=== PATIENT | male | born 1995 | race Caucasian/White ===

== ENCOUNTER 2016-07-28 22:59 | Inpatient (IN) | payer MEDICAID ==
[~2016-07-28] VITALS: Ht 180.3 cm; Wt 123.8 kg
[2016-07-29] VITALS (8 sets, daily range): BP systolic 123–147; BP diastolic 69–96
[2016-07-29] MEDS ORDERED: HALOPERIDOL 5 MG TABLET PO PRN (02:15)
[2016-07-29] MEDS ORDERED: LORazepam 2 MG TABLET PO PRN ×2 (02:15→13:30)
[2016-07-29] MEDS ORDERED: INFLUENZA VIRUS VACCINE QVS 2016-17 (3YR+)/PF 60 MCG/0.5 ML SYRINGE IM ONE (03:00)
[2016-07-29] MEDS ORDERED: MAG HYDROX/AL HYDROX/SIMETH ES 30 ML SUSPENSION UDCUP PO PRN (09:00)
[2016-07-29] MEDS ORDERED: MAGNESIUM HYDROXIDE SUSPENSION 30 ML UDCUP PO PRN (09:00)
[2016-07-29] MEDS ORDERED: ONDANSETRON HCL 4 MG TABLET PO PRN (09:00)
[2016-07-29] MEDS ORDERED: CloNIDine HCL 0.1 MG TABLET PO PRN (09:00)
[2016-07-29] MEDS ORDERED: PETROLATUM,WHITE 71 GM JELLY TP PRN (09:00)
[2016-07-29] MEDS ORDERED: BACITRACIN 28.4 GM OINTMENT TP PRN (09:00)
[2016-07-29] MEDS ORDERED: BENZOCAINE/MENTHOL LOZENGE MM PRN (09:00)
[2016-07-29] MEDS ORDERED: IBUPROFEN 600 MG TABLET PO PRN (09:00)
[2016-07-29] MEDS ORDERED: ACETAMINOPHEN 325 MG TABLET PO PRN (09:00)
[2016-07-29] MEDS ORDERED: LOPERAMIDE HCL 2 MG CAPSULE PO PRN (09:00)
[2016-07-29] MEDS ORDERED: FLUTICASONE PROPIONATE 50 MCG/SPRAY 16 GM NASAL SPRAY NASAL PRN (09:15)
[2016-07-29] MEDS ORDERED: HydrOXYzine PAMOATE 50 MG CAPSULE PO PRN (13:30)
[2016-07-29] MEDS ORDERED: CYANOCOBALAMIN 1,000 MCG/ML VIAL IM ONE (13:30)
[2016-07-29] MEDS: FOLIC ACID 1 MG TABLET PO SCH (13:51)
[2016-07-29] MEDS: MULTIVITAMINS WITH MINERALS, THERAPEUTIC TABLET PO SCH (13:51)
[2016-07-29] MEDS: THIAMINE HCL 100 MG TABLET PO SCH (16:29)
[2016-07-29] MEDS: QUEtiapine FUMARATE 200 MG TABLET PO SCH (20:43)
[2016-07-30] VITALS (9 sets, daily range): BP systolic 119–139; BP diastolic 60–78
[2016-07-30] MEDS ORDERED: LORazepam 2 MG TABLET PO PRN (07:00)
[2016-07-30 07:51] LABS: BASOPHILS % (AUTO) 0.9 % (0.0-2.0); EOSINOPHILS % (AUTO) 6.1 % (1.0-6.0); HEMATOCRIT 41.7 % (41-53); HEMOGLOBIN 13.5 g/dL (13.5-17.5); LYMPHOCYTES # (AUTO) 2.7 K/uL (1.0-4.8); LYMPHOCYTES % (AUTO) 42.8 % (22.0-44.0); MEAN CORPUSCULAR HEMOGLOBIN 27.5 pg (26.0-34.0); MEAN CORPUSCULAR HGB CONC 32.4 G/dL (31.0-37.0); MEAN CORPUSCULAR VOLUME 85 fL (80-100); MONOCYTES # (AUTO) 0.4 K/uL (0.1-1.0); MONOCYTES % (AUTO) 6.2 % (2.0-9.0); NEUTROPHILS # (AUTO) 2.7 K/uL (1.8-7.7); PLATELET COUNT (AUTO) 207 K/uL (150-450); RED CELL DISTRIBUTION WIDTH 13.5 % (11.5-14.5); WHITE BLOOD COUNT (AUTO) 6.2 K/uL (4.5-11.0)
[2016-07-30 08:36] LABS: ALANINE AMINOTRANSFERASE 33 U/L (12-78); ALBUMIN 3.3 g/dL (3.4-5.0); ANION GAP 7 mmol/L (8-16); ASPARTATE AMINOTRANSFERASE 21 U/L (15-37); BILIRUBIN,TOTAL 0.3 mg/dL (0.1-1.0); CALCIUM, TOTAL 8.4 mg/dL (8.8-10.5); CARBON DIOXIDE 29 mmol/L (22-29); CHLORIDE 103 mmol/L (98-107); CHOL/HDL RATIO 2.3 (4.2-7.3); CREATININE 0.94 mg/dL (0.60-1.30); GLOMERULAR FILTR. RATE CALC > 60 mL/min (>60); POTASSIUM 4.7 mmol/L (3.5-5.1); SODIUM SERUM 139 mmol/L (136-145); TOTAL PROTEIN, SERUM 6.8 g/dL (6.4-8.2); UREA NITROGEN, BLOOD 11 mg/dL (7-18)
[2016-07-30] MEDS: MULTIVITAMINS WITH MINERALS, THERAPEUTIC TABLET PO SCH (09:01)
[2016-07-30] MEDS: LORazepam 2 MG TABLET PO SCH ×4 (09:01→20:16)
[2016-07-30] MEDS: FOLIC ACID 1 MG TABLET PO SCH (09:01)
[2016-07-30] MEDS: THIAMINE HCL 100 MG TABLET PO SCH ×2 (09:01→16:22)
[2016-07-30] MEDS ORDERED: DiphenhydrAMINE HCL 50 MG/ML VIAL IM ONE (09:15)
[2016-07-30] MEDS ORDERED: QUEtiapine FUMARATE 100 MG TABLET PO PRN (09:15)
[2016-07-30] MEDS: QUEtiapine FUMARATE 200 MG TABLET PO SCH (20:16)
[2016-07-31 00:15] VITALS: BP 148/76
[2016-07-31 08:35] VITALS: BP 125/75
[2016-07-31 09:30] VITALS: BP 125/75
[2016-07-31] MEDS: THIAMINE HCL 100 MG TABLET PO SCH ×2 (09:35→16:35)
[2016-07-31] MEDS: LORazepam 2 MG TABLET PO SCH ×4 (09:35→20:55)
[2016-07-31] MEDS: MULTIVITAMINS WITH MINERALS, THERAPEUTIC TABLET PO SCH (09:35)
[2016-07-31] MEDS: FOLIC ACID 1 MG TABLET PO SCH (09:35)
[2016-07-31] MEDS: AZITHROMYCIN 250 MG TABLET PO SCH (10:53)
[2016-07-31] MEDS: QUEtiapine FUMARATE 200 MG TABLET PO SCH ×2 (10:53→20:55)
[2016-07-31] MEDS: GuaiFENesin/D-METHORPHAN/PHENYLEPH 5 ML LIQUID ORAL.SYG PO PRN ×2 (12:10→21:27)
[2016-07-31 16:15] VITALS: BP 122/75
[2016-07-31 20:28] VITALS: BP 122/75
[2016-07-31] MEDS: ZOLPIDEM TARTRATE 10 MG TABLET PO PRN (21:53)
[2016-08-01 00:01] VITALS: BP 129/79
[2016-08-01 02:38] VITALS: BP 129/79
[2016-08-01] MEDS ORDERED: LORazepam 1 MG TABLET PO PRN (07:00)
[2016-08-01 08:12] VITALS: BP 124/65
[2016-08-01 08:30] VITALS: BP 124/65
[2016-08-01] MEDS: FOLIC ACID 1 MG TABLET PO SCH (09:44)
[2016-08-01] MEDS: LORazepam 1 MG TABLET PO SCH ×4 (09:44→20:14)
[2016-08-01] MEDS: THIAMINE HCL 100 MG TABLET PO SCH ×2 (09:44→16:24)
[2016-08-01] MEDS: CHOLECALCIFEROL (VIT D3) 1,000 UNITS TABLET PO SCH (09:44)
[2016-08-01] MEDS: QUEtiapine FUMARATE 200 MG TABLET PO SCH ×2 (09:44→20:14)
[2016-08-01] MEDS: MULTIVITAMINS WITH MINERALS, THERAPEUTIC TABLET PO SCH (09:44)
[2016-08-01] MEDS: AZITHROMYCIN 250 MG TABLET PO SCH (09:44)
[2016-08-01 16:00] VITALS: BP 136/86
[2016-08-02 00:03] VITALS: BP 122/79
[2016-08-02 06:57] VITALS: BP 121/65
[2016-08-02] MEDS ORDERED: LORazepam 1 MG TABLET PO PRN (07:00)
[2016-08-02 08:12] VITALS: BP 123/66
[2016-08-02] MEDS: AZITHROMYCIN 250 MG TABLET PO SCH (10:13)
[2016-08-02] MEDS: MULTIVITAMINS WITH MINERALS, THERAPEUTIC TABLET PO SCH (10:13)
[2016-08-02] MEDS: FOLIC ACID 1 MG TABLET PO SCH (10:13)
[2016-08-02] MEDS: CHOLECALCIFEROL (VIT D3) 1,000 UNITS TABLET PO SCH (10:13)
[2016-08-02] MEDS: THIAMINE HCL 100 MG TABLET PO SCH ×2 (10:13→17:10)
[2016-08-02] MEDS: QUEtiapine FUMARATE 200 MG TABLET PO SCH (10:13)
[2016-08-02] MEDS: ALBUTEROL SULFATE HFA 90 MCG/PUFF 8 GM INHALER IH PRN (10:19)
[2016-08-02 11:25] VITALS: BP 123/66
[2016-08-02 16:08] VITALS: BP 135/77
[2016-08-02 16:09] VITALS: BP 135/77
[2016-08-02] MEDS: QUEtiapine FUMARATE 300 MG TABLET PO SCH (20:33)
[2016-08-03] MEDS ORDERED: LORazepam 2 MG TABLET PO PRN (07:15)
[2016-08-03 08:11] VITALS: BP 127/80
[2016-08-03 09:05] VITALS: BP 127/80
[2016-08-03] MEDS: FLUoxetine HCL 20 MG CAPSULE PO SCH (09:24)
[2016-08-03] MEDS: THIAMINE HCL 100 MG TABLET PO SCH ×2 (09:24→17:03)
[2016-08-03] MEDS: MULTIVITAMINS WITH MINERALS, THERAPEUTIC TABLET PO SCH (09:24)
[2016-08-03] MEDS: FOLIC ACID 1 MG TABLET PO SCH (09:24)
[2016-08-03] MEDS: CHOLECALCIFEROL (VIT D3) 1,000 UNITS TABLET PO SCH (09:24)
[2016-08-03] MEDS: QUEtiapine FUMARATE 300 MG TABLET PO SCH ×2 (09:24→20:42)
[2016-08-03] MEDS: AZITHROMYCIN 250 MG TABLET PO SCH (09:24)
[2016-08-03 16:00] VITALS: BP 134/74
[2016-08-03 16:11] VITALS: BP 134/74
[2016-08-04 08:12] VITALS: BP 118/59
[2016-08-04] MEDS: MULTIVITAMINS WITH MINERALS, THERAPEUTIC TABLET PO SCH (08:26)
[2016-08-04] MEDS: CHOLECALCIFEROL (VIT D3) 1,000 UNITS TABLET PO SCH (08:26)
[2016-08-04] MEDS: FLUoxetine HCL 20 MG CAPSULE PO SCH (08:26)
[2016-08-04] MEDS: QUEtiapine FUMARATE 300 MG TABLET PO SCH ×2 (08:26→20:36)
[2016-08-04] MEDS: THIAMINE HCL 100 MG TABLET PO SCH ×2 (08:26→17:03)
[2016-08-04] MEDS: FOLIC ACID 1 MG TABLET PO SCH (08:26)
[2016-08-04] MEDS: AZITHROMYCIN 250 MG TABLET PO SCH (08:26)
[2016-08-04 09:00] VITALS: BP 127/66
[2016-08-04] MEDS: LORazepam 2 MG TABLET PO PRN (09:00)
[2016-08-04 16:00] VITALS: BP 114/62
[2016-08-05 06:41] VITALS: BP 109/68
[2016-08-05 08:30] VITALS: BP 121/66
[2016-08-05] MEDS: THIAMINE HCL 100 MG TABLET PO SCH ×2 (09:22→16:30)
[2016-08-05] MEDS: QUEtiapine FUMARATE 300 MG TABLET PO SCH ×2 (09:22→20:19)
[2016-08-05] MEDS: MULTIVITAMINS WITH MINERALS, THERAPEUTIC TABLET PO SCH (09:22)
[2016-08-05] MEDS: FLUoxetine HCL 20 MG CAPSULE PO SCH (09:22)
[2016-08-05] MEDS: CHOLECALCIFEROL (VIT D3) 1,000 UNITS TABLET PO SCH (09:22)
[2016-08-05] MEDS: LORazepam 2 MG TABLET PO PRN ×2 (09:22→16:30)
[2016-08-05] MEDS: AZITHROMYCIN 250 MG TABLET PO SCH (09:22)
[2016-08-05] MEDS: FOLIC ACID 1 MG TABLET PO SCH (09:22)
[2016-08-05] MEDS: ALBUTEROL SULFATE HFA 90 MCG/PUFF 8 GM INHALER IH PRN (13:09)
[2016-08-05] MEDS ORDERED: GuaiFENesin [SUGAR-FREE] 200 MG/10 ML SOLUTION UDCUP PO PRN (13:45)
[2016-08-05 16:00] VITALS: BP 134/61
[2016-08-05] MEDS: ZOLPIDEM TARTRATE 10 MG TABLET PO PRN (20:22)
[2016-08-06 06:42] VITALS: BP 122/72
[2016-08-06 08:09] VITALS: BP 137/68
[2016-08-06] MEDS: FOLIC ACID 1 MG TABLET PO SCH (08:55)
[2016-08-06] MEDS: FLUoxetine HCL 20 MG CAPSULE PO SCH (08:55)
[2016-08-06] MEDS: THIAMINE HCL 100 MG TABLET PO SCH ×2 (08:56→16:21)
[2016-08-06] MEDS: QUEtiapine FUMARATE 300 MG TABLET PO SCH ×2 (08:56→20:27)
[2016-08-06] MEDS: LORazepam 2 MG TABLET PO PRN ×2 (08:56→18:01)
[2016-08-06] MEDS: MULTIVITAMINS WITH MINERALS, THERAPEUTIC TABLET PO SCH (08:56)
[2016-08-06] MEDS: CHOLECALCIFEROL (VIT D3) 1,000 UNITS TABLET PO SCH (08:56)
[2016-08-06 16:48] VITALS: BP 112/60
[2016-08-06] MEDS: ZOLPIDEM TARTRATE 10 MG TABLET PO PRN (20:27)
[2016-08-07 06:13] VITALS: BP 119/72
[2016-08-07] MEDS ORDERED: FLUO20CA30 PO (07:50)
[2016-08-07] MEDS ORDERED: QUET300T2 PO (07:50)
[2016-08-07] MEDS ORDERED: VITAD1000 PO (07:50)
[2016-08-07] MEDS: MULTIVITAMINS WITH MINERALS, THERAPEUTIC TABLET PO SCH (08:47)
[2016-08-07] MEDS: FOLIC ACID 1 MG TABLET PO SCH (08:47)
[2016-08-07] MEDS: QUEtiapine FUMARATE 300 MG TABLET PO SCH (08:47)
[2016-08-07] MEDS: FLUoxetine HCL 20 MG CAPSULE PO SCH (08:47)
[2016-08-07] MEDS: CHOLECALCIFEROL (VIT D3) 1,000 UNITS TABLET PO SCH (08:47)
[2016-08-07] MEDS: THIAMINE HCL 100 MG TABLET PO SCH (08:47)
[2016-08-07] MEDS: ALBUTEROL SULFATE HFA 90 MCG/PUFF 8 GM INHALER IH PRN (08:48)
== END 2016-08-07 09:49 | disposition home or self-care (01) | DRG 750 ==
LOC: B2S 07-29 02:29 → B3A 07-31 23:40 → B2X 07-31 23:40
DX: F25.1 Schizoaffective disorder, depressive type (principal); F29 Unspecified psychosis not due to a substance or known physiological condition; F32.9 Major depressive disorder, single episode, unspecified; F20.0 Paranoid schizophrenia; K59.00 Constipation, unspecified; J20.9 Acute bronchitis, unspecified; F17.210 Nicotine dependence, cigarettes, uncomplicated; F15.10 Other stimulant abuse, uncomplicated; F12.90 Cannabis use, unspecified, uncomplicated; E66.9 Obesity, unspecified; H92.03 Otalgia, bilateral; Z65.3 Problems related to other legal circumstances; Z79.899 Other long term (current) drug therapy; Z72.89 Other problems related to lifestyle; Z68.38 Body mass index [BMI] 38.0-38.9, adult
CPT/HCPCS: 82306; 84443; 87081; 90471; J1200; J3230; J3420; J3535

== ENCOUNTER 2016-08-30 20:54 | Inpatient (IN) | payer MEDICAID ==
[~2016-08-30] VITALS: Ht 182.9 cm; Wt 133.5 kg
[~2016-08-30 20:54] MED LIST: FLUO20CA30 PO; QUET300T2 PO; VITAD1000 PO
[2016-08-30 21:24] LABS: BASOPHILS # (AUTO) 0.05 K/uL (0.00-0.20); BASOPHILS % (AUTO) 0.6 % (0.0-2.0); EOSINOPHILS # (AUTO) 0.06 K/uL (0.00-0.70); EOSINOPHILS % (AUTO) 0.68 % (1.0-6.0); HEMATOCRIT 40.8 % (41-53); HEMOGLOBIN 13.7 g/dL (13.5-17.5); LYMPHOCYTES # (AUTO) 2.3 K/uL (1.0-4.8); LYMPHOCYTES % (AUTO) 26.3 % (22.0-44.0); MEAN CORPUSCULAR HEMOGLOBIN 27.4 pg (26.0-34.0); MEAN CORPUSCULAR HGB CONC 33.6 G/dL (31.0-37.0); MEAN CORPUSCULAR VOLUME 82 fL (80-100); MONOCYTES # (AUTO) 0.4 K/uL (0.1-1.0); MONOCYTES % (AUTO) 4.1 % (2.0-9.0); NEUTROPHILS % (AUTO) 68.4 % (40.0-70.0); PLATELET COUNT (AUTO) 232 K/uL (150-450); RED BLOOD CELL COUNT(AUTO) 4.98 MIL/uL (4.50-5.90); RED CELL DISTRIBUTION WIDTH 13.2 % (11.5-14.5); WHITE BLOOD COUNT (AUTO) 8.7 K/uL (4.5-11.0)
[2016-08-30 21:33] LABS: ANION GAP 13 mmol/L (8-16); CALCIUM, TOTAL 7.6 mg/dL (8.8-10.5); CARBON DIOXIDE 23 mmol/L (22-29); CHLORIDE 103 mmol/L (98-107); CREATININE 1.07 mg/dL (0.60-1.30); GLOMERULAR FILTR. RATE CALC > 60 mL/min (>60); SODIUM SERUM 139 mmol/L (136-145); UREA NITROGEN, BLOOD 10 mg/dL (7-18)
[2016-08-30 21:39] LABS: ALANINE AMINOTRANSFERASE 29 U/L (12-78); ALBUMIN 3.8 g/dL (3.4-5.0); ASPARTATE AMINOTRANSFERASE 18 U/L (15-37); BILIRUBIN,TOTAL 0.2 mg/dL (0.1-1.0); TOTAL PROTEIN, SERUM 7.7 g/dL (6.4-8.2)
[2016-08-30] MEDS ORDERED: QUEtiapine FUMARATE 100 MG TABLET PO ONE (23:30)
[2016-08-30] MEDS ORDERED: HALOPERIDOL 5 MG TABLET PO PRN (23:45)
[2016-08-30] MEDS ORDERED: ZOLPIDEM TARTRATE 10 MG TABLET PO PRN (23:45)
[2016-08-30] MEDS ORDERED: LORazepam 2 MG TABLET PO PRN (23:45)
[2016-08-31 00:05] LABS: APPEARANCE,URINE TURBID (CLEAR); GLUCOSE, URINE (UA) NEGATIVE (NEGATIVE); KETONES,URINE NEGATIVE (NEGATIVE); LEUKOCYTE ESTERASE ,URINE NEGATIVE (NEGATIVE); OCCULT BLOOD,URINE NEGATIVE (NEGATIVE); PROTEIN,URINE NEGATIVE (NEGATIVE)
[2016-08-31 00:06] LABS: ADD UA MICROSCOPIC NO
[2016-08-31 01:38] VITALS: BP 131/63
[2016-08-31 01:43] VITALS: BP 131/63
[2016-08-31] MEDS ORDERED: PETROLATUM,WHITE 71 GM JELLY TP PRN (08:30)
[2016-08-31] MEDS ORDERED: ACETAMINOPHEN 325 MG TABLET PO PRN (08:30)
[2016-08-31] MEDS ORDERED: MAGNESIUM HYDROXIDE SUSPENSION 30 ML UDCUP PO PRN (08:30)
[2016-08-31] MEDS ORDERED: BENZOCAINE/MENTHOL LOZENGE [8 LOZENGES/PACKET] MM PRN (08:30)
[2016-08-31] MEDS ORDERED: IBUPROFEN 600 MG TABLET PO PRN (08:30)
[2016-08-31] MEDS ORDERED: ONDANSETRON HCL 4 MG TABLET PO PRN (08:30)
[2016-08-31] MEDS ORDERED: BACITRACIN 28.4 GM OINTMENT TP PRN (08:30)
[2016-08-31] MEDS ORDERED: ALBUTEROL SULFATE HFA 90 MCG/PUFF 8 GM INHALER IH PRN (08:30)
[2016-08-31] MEDS ORDERED: CloNIDine HCL 0.1 MG TABLET PO PRN (08:30)
[2016-08-31] MEDS ORDERED: MAG HYDROX/AL HYDROX/SIMETH ES 30 ML SUSPENSION UDCUP PO PRN (08:30)
[2016-08-31] MEDS ORDERED: LOPERAMIDE HCL 2 MG CAPSULE PO PRN ×2 (08:30→13:30)
[2016-08-31 08:47] VITALS: BP 126/65
[2016-08-31] MEDS: CHOLECALCIFEROL (VIT D3) 1,000 UNITS TABLET PO SCH (08:48)
[2016-08-31] MEDS ORDERED: HydrOXYzine PAMOATE 50 MG CAPSULE PO PRN (13:30)
[2016-08-31] MEDS ORDERED: CYANOCOBALAMIN 1,000 MCG/ML VIAL IM ONE (13:30)
[2016-08-31] MEDS ORDERED: LORazepam 2 MG TABLET PO PRN ×2 (13:30)
[2016-08-31] MEDS: LORazepam 2 MG TABLET PO SCH ×3 (13:59→20:26)
[2016-08-31] MEDS: FOLIC ACID 1 MG TABLET PO SCH (13:59)
[2016-08-31 16:01] VITALS: BP 128/72
[2016-08-31] MEDS: THIAMINE HCL 100 MG TABLET PO SCH (16:07)
[2016-08-31 17:00] VITALS: BP 115/72
[2016-08-31] MEDS: QUEtiapine FUMARATE 200 MG TABLET PO SCH (20:26)
[2016-08-31 21:00] VITALS: BP 123/70
[2016-08-31] MEDS ORDERED: QUEtiapine FUMARATE 200 MG TABLET PO SCH (21:00)
[2016-09-01] VITALS (7 sets, daily range): BP systolic 113–147; BP diastolic 60–70
[2016-09-01] MEDS: MULTIVITAMINS WITH MINERALS, THERAPEUTIC TABLET PO SCH (08:35)
[2016-09-01] MEDS: THIAMINE HCL 100 MG TABLET PO SCH ×2 (08:35→16:16)
[2016-09-01] MEDS: CHOLECALCIFEROL (VIT D3) 1,000 UNITS TABLET PO SCH (08:35)
[2016-09-01] MEDS: FOLIC ACID 1 MG TABLET PO SCH (08:35)
[2016-09-01] MEDS: FLUoxetine HCL 20 MG CAPSULE PO SCH (08:35)
[2016-09-01] MEDS: LORazepam 2 MG TABLET PO SCH ×4 (08:36→21:08)
[2016-09-01] MEDS: QUEtiapine FUMARATE 200 MG TABLET PO SCH (21:08)
[2016-09-02 04:54] VITALS: BP 121/74
[2016-09-02 05:53] VITALS: BP 121/74
[2016-09-02] MEDS ORDERED: LORazepam 1 MG TABLET PO PRN (07:00)
[2016-09-02] MEDS: LORazepam 1 MG TABLET PO SCH ×4 (09:00→20:25)
[2016-09-02] MEDS: FLUoxetine HCL 20 MG CAPSULE PO SCH (09:03)
[2016-09-02] MEDS: MULTIVITAMINS WITH MINERALS, THERAPEUTIC TABLET PO SCH (09:03)
[2016-09-02] MEDS: CHOLECALCIFEROL (VIT D3) 1,000 UNITS TABLET PO SCH (09:03)
[2016-09-02] MEDS: THIAMINE HCL 100 MG TABLET PO SCH ×2 (09:03→16:40)
[2016-09-02] MEDS: FOLIC ACID 1 MG TABLET PO SCH (09:04)
[2016-09-02] MEDS: LORazepam 2 MG TABLET PO SCH (09:06)
[2016-09-02 09:59] VITALS: BP 117/63
[2016-09-02 10:01] VITALS: BP 117/63
[2016-09-02 17:05] VITALS: BP 119/65
[2016-09-02] MEDS: QUEtiapine FUMARATE 200 MG TABLET PO SCH (20:25)
[2016-09-02 22:17] VITALS: BP 118/65
[2016-09-03 06:19] VITALS: BP 130/70
[2016-09-03 06:24] VITALS: BP 130/70
[2016-09-03] MEDS ORDERED: LORazepam 1 MG TABLET PO PRN (07:00)
[2016-09-03 08:42] VITALS: BP 129/95
[2016-09-03] MEDS: THIAMINE HCL 100 MG TABLET PO SCH ×2 (09:22→16:44)
[2016-09-03] MEDS: FLUoxetine HCL 20 MG CAPSULE PO SCH (09:22)
[2016-09-03] MEDS: FOLIC ACID 1 MG TABLET PO SCH (09:23)
[2016-09-03] MEDS: MULTIVITAMINS WITH MINERALS, THERAPEUTIC TABLET PO SCH (09:23)
[2016-09-03] MEDS: CHOLECALCIFEROL (VIT D3) 1,000 UNITS TABLET PO SCH (09:24)
[2016-09-03 10:12] VITALS: BP 129/95
[2016-09-03 16:28] VITALS: BP 116/76
[2016-09-03] MEDS: QUEtiapine FUMARATE 200 MG TABLET PO SCH (20:31)
[2016-09-03 22:33] VITALS: BP 117/65
[2016-09-04 08:22] VITALS: BP 111/76
[2016-09-04] MEDS: FLUoxetine HCL 20 MG CAPSULE PO SCH (10:00)
[2016-09-04] MEDS: MULTIVITAMINS WITH MINERALS, THERAPEUTIC TABLET PO SCH (10:00)
[2016-09-04] MEDS: CHOLECALCIFEROL (VIT D3) 1,000 UNITS TABLET PO SCH (10:00)
[2016-09-04] MEDS: THIAMINE HCL 100 MG TABLET PO SCH ×2 (10:00→16:26)
[2016-09-04] MEDS: FOLIC ACID 1 MG TABLET PO SCH (10:00)
[2016-09-04] MEDS: QUEtiapine FUMARATE 300 MG TABLET PO SCH ×2 (13:14→20:30)
[2016-09-04 16:19] VITALS: BP 113/78
[2016-09-05 08:00] VITALS: BP 131/67
[2016-09-05] MEDS: FOLIC ACID 1 MG TABLET PO SCH (08:30)
[2016-09-05] MEDS: FLUoxetine HCL 20 MG CAPSULE PO SCH (08:30)
[2016-09-05] MEDS: QUEtiapine FUMARATE 300 MG TABLET PO SCH ×2 (08:31→20:30)
[2016-09-05] MEDS: THIAMINE HCL 100 MG TABLET PO SCH ×2 (08:31→16:32)
[2016-09-05] MEDS: CHOLECALCIFEROL (VIT D3) 1,000 UNITS TABLET PO SCH (08:56)
[2016-09-05] MEDS: MULTIVITAMINS WITH MINERALS, THERAPEUTIC TABLET PO SCH (08:56)
[2016-09-05] MEDS: GuaiFENesin/D-METHORPHAN [SUGAR-FREE] 200-20MG/10 ML SYRUP UDCUP PO PRN (20:18)
[2016-09-06 06:01] VITALS: BP 118/82
[2016-09-06 08:00] VITALS: BP 112/68
[2016-09-06] MEDS: FLUoxetine HCL 20 MG CAPSULE PO SCH (08:34)
[2016-09-06] MEDS: CHOLECALCIFEROL (VIT D3) 1,000 UNITS TABLET PO SCH (08:34)
[2016-09-06] MEDS: QUEtiapine FUMARATE 300 MG TABLET PO SCH ×2 (08:34→20:52)
[2016-09-06] MEDS: FOLIC ACID 1 MG TABLET PO SCH (08:34)
[2016-09-06] MEDS: MULTIVITAMINS WITH MINERALS, THERAPEUTIC TABLET PO SCH (08:34)
[2016-09-06] MEDS: THIAMINE HCL 100 MG TABLET PO SCH ×2 (08:34→16:35)
[2016-09-06] MEDS: GuaiFENesin/D-METHORPHAN [SUGAR-FREE] 200-20MG/10 ML SYRUP UDCUP PO PRN ×2 (08:37→18:22)
[2016-09-06 17:17] VITALS: BP 117/77
[2016-09-07 08:11] VITALS: BP 114/81
[2016-09-07] MEDS: CHOLECALCIFEROL (VIT D3) 1,000 UNITS TABLET PO SCH (08:26)
[2016-09-07] MEDS: FLUoxetine HCL 20 MG CAPSULE PO SCH (08:26)
[2016-09-07] MEDS: FOLIC ACID 1 MG TABLET PO SCH (08:26)
[2016-09-07] MEDS: MULTIVITAMINS WITH MINERALS, THERAPEUTIC TABLET PO SCH (08:26)
[2016-09-07] MEDS: THIAMINE HCL 100 MG TABLET PO SCH (08:27)
[2016-09-07] MEDS: QUEtiapine FUMARATE 300 MG TABLET PO SCH (08:34)
[2016-09-07] MEDS ORDERED: FLUO-191 PO (13:08)
[2016-09-07] MEDS ORDERED: QUET300T2 PO (13:08)
[2016-09-07 16:13] VITALS: BP 131/78
== END 2016-09-07 15:45 | disposition home or self-care (01) | DRG 750 ==
LOC: EMS 20:58 → 3EC 08-31 00:56
DX: F25.1 Schizoaffective disorder, depressive type (principal); R45.851 Suicidal ideations; E55.9 Vitamin D deficiency, unspecified; E66.9 Obesity, unspecified; K59.00 Constipation, unspecified; F15.90 Other stimulant use, unspecified, uncomplicated; F12.90 Cannabis use, unspecified, uncomplicated; F17.210 Nicotine dependence, cigarettes, uncomplicated; Z71.41 Alcohol abuse counseling and surveillance of alcoholic; Z71.51 Drug abuse counseling and surveillance of drug abuser; Z91.14 Patient's other noncompliance with medication regimen; Z59.0 Homelessness; Z72.89 Other problems related to lifestyle; Z68.39 Body mass index [BMI] 39.0-39.9, adult; Z71.6 Tobacco abuse counseling
CPT/HCPCS: 87081; 99285; G0480; J3420

== ENCOUNTER 2016-10-26 06:48 | Inpatient (IN) | payer MEDICAID ==
[~2016-10-26] VITALS: Ht 182.9 cm; Wt 130.3 kg
[~2016-10-26 06:48] MED LIST changes: +FLUO-191 PO; -FLUO20CA30 PO; -VITAD1000 PO
[2016-10-26 13:30] VITALS: BP 116/58
[2016-10-26] MEDS ORDERED: HALOPERIDOL 5 MG TABLET PO PRN (13:45)
[2016-10-26] MEDS ORDERED: ZOLPIDEM TARTRATE 10 MG TABLET PO PRN (13:45)
[2016-10-26 14:39] VITALS: BP 121/87
[2016-10-26 16:08] VITALS: BP 110/66
[2016-10-26] MEDS: LORazepam 2 MG TABLET PO PRN (20:39)
[2016-10-26] MEDS: QUEtiapine FUMARATE 300 MG TABLET PO SCH (20:40)
[2016-10-27 06:39] VITALS: BP 116/75
[2016-10-27 08:12] VITALS: BP 116/67
[2016-10-27] MEDS: FLUoxetine HCL 20 MG CAPSULE PO SCH (09:07)
[2016-10-27] MEDS: QUEtiapine FUMARATE 300 MG TABLET PO SCH ×2 (09:07→21:38)
[2016-10-27] MEDS: CEPHALEXIN MONOHYDRATE 500 MG CAPSULE PO SCH ×2 (14:06→17:23)
[2016-10-27 16:00] VITALS: BP 125/75
[2016-10-27] MEDS: LORazepam 2 MG TABLET PO PRN (17:23)
[2016-10-27] MEDS ORDERED: MAG HYDROX/AL HYDROX/SIMETH ES 30 ML SUSPENSION UDCUP PO PRN (18:15)
[2016-10-27] MEDS ORDERED: ONDANSETRON HCL 4 MG TABLET PO PRN (18:15)
[2016-10-27] MEDS ORDERED: ALBUTEROL SULFATE HFA 90 MCG/PUFF 8 GM INHALER IH PRN (18:15)
[2016-10-27] MEDS ORDERED: PETROLATUM,WHITE 71 GM JELLY TP PRN (18:15)
[2016-10-27] MEDS ORDERED: CloNIDine HCL 0.1 MG TABLET PO PRN (18:15)
[2016-10-27] MEDS ORDERED: ACETAMINOPHEN 325 MG TABLET PO PRN (18:15)
[2016-10-27] MEDS ORDERED: LOPERAMIDE HCL 2 MG CAPSULE PO PRN (18:15)
[2016-10-27] MEDS ORDERED: MAGNESIUM HYDROXIDE SUSPENSION 30 ML UDCUP PO PRN (18:15)
[2016-10-27] MEDS ORDERED: BENZOCAINE/MENTHOL LOZENGE MM PRN (18:15)
[2016-10-27] MEDS ORDERED: IBUPROFEN 600 MG TABLET PO PRN (18:15)
[2016-10-28 03:47] VITALS: BP 123/69
[2016-10-28 08:36] VITALS: BP 124/62
[2016-10-28] MEDS: QUEtiapine FUMARATE 300 MG TABLET PO SCH ×2 (09:09→20:26)
[2016-10-28] MEDS: FLUoxetine HCL 20 MG CAPSULE PO SCH (09:09)
[2016-10-28] MEDS: CEPHALEXIN MONOHYDRATE 500 MG CAPSULE PO SCH ×3 (09:09→17:06)
[2016-10-28] MEDS: MUPIROCIN CALCIUM 2% 15 GM CREAM TP SCH ×2 (09:10→17:07)
[2016-10-28 16:21] VITALS: BP 130/86
[2016-10-29 00:11] VITALS: BP 108/64
[2016-10-29 07:59] LABS: BASOPHILS # (AUTO) 0.07 K/uL (0.00-0.20); EOSINOPHILS # (AUTO) 0.43 K/uL (0.00-0.70); EOSINOPHILS % (AUTO) 6.31 % (1.0-6.0); HEMATOCRIT 41.7 % (41-53); HEMOGLOBIN 13.3 g/dL (13.5-17.5); LYMPHOCYTES # (AUTO) 2.7 K/uL (1.0-4.8); LYMPHOCYTES % (AUTO) 39.8 % (22.0-44.0); MEAN CORPUSCULAR HEMOGLOBIN 27.4 pg (26.0-34.0); MEAN CORPUSCULAR VOLUME 86 fL (80-100); MONOCYTES # (AUTO) 0.5 K/uL (0.1-1.0); MONOCYTES % (AUTO) 6.9 % (2.0-9.0); NEUTROPHILS # (AUTO) 3.2 K/uL (1.8-7.7); NEUTROPHILS % (AUTO) 45.9 % (40.0-70.0); PLATELET COUNT (AUTO) 218 K/uL (150-450); RED BLOOD CELL COUNT(AUTO) 4.87 MIL/uL (4.50-5.90); RED CELL DISTRIBUTION WIDTH 13.9 % (11.5-14.5); WHITE BLOOD COUNT (AUTO) 6.9 K/uL (4.5-11.0)
[2016-10-29 08:23] VITALS: BP 120/63
[2016-10-29 08:30] LABS: ALANINE AMINOTRANSFERASE 26 U/L (12-78); ALBUMIN 3.3 g/dL (3.4-5.0); ANION GAP 6 mmol/L (8-16); ASPARTATE AMINOTRANSFERASE 12 U/L (15-37); BILIRUBIN,TOTAL 0.2 mg/dL (0.1-1.0); CALCIUM, TOTAL 8.5 mg/dL (8.8-10.5); CARBON DIOXIDE 30 mmol/L (22-29); CHLORIDE 104 mmol/L (98-107); CREATININE 0.96 mg/dL (0.60-1.30); GLOMERULAR FILTR. RATE CALC > 60 mL/min (>60); POTASSIUM 4.2 mmol/L (3.5-5.1); SODIUM SERUM 140 mmol/L (136-145); TOTAL PROTEIN, SERUM 6.8 g/dL (6.4-8.2); UREA NITROGEN, BLOOD 12 mg/dL (7-18)
[2016-10-29] MEDS: FLUoxetine HCL 20 MG CAPSULE PO SCH (08:58)
[2016-10-29] MEDS: QUEtiapine FUMARATE 300 MG TABLET PO SCH ×2 (08:58→20:37)
[2016-10-29] MEDS: MUPIROCIN CALCIUM 2% 15 GM CREAM TP SCH ×2 (08:59→16:39)
[2016-10-29] MEDS: CEPHALEXIN MONOHYDRATE 500 MG CAPSULE PO SCH ×3 (08:59→16:39)
[2016-10-29 16:42] VITALS: BP 112/68
[2016-10-30 01:13] VITALS: BP 108/64
[2016-10-30 08:12] VITALS: BP 111/60
[2016-10-30] MEDS: MUPIROCIN CALCIUM 2% 15 GM CREAM TP SCH ×2 (09:37→16:34)
[2016-10-30] MEDS: CEPHALEXIN MONOHYDRATE 500 MG CAPSULE PO SCH ×3 (09:37→16:34)
[2016-10-30] MEDS: QUEtiapine FUMARATE 300 MG TABLET PO SCH ×2 (09:37→20:11)
[2016-10-30] MEDS: FLUoxetine HCL 20 MG CAPSULE PO SCH (09:37)
[2016-10-30 16:21] VITALS: BP 113/76
[2016-10-30] MEDS ORDERED: DiphenhydrAMINE HCL 50 MG/ML VIAL IM ONE (21:15)
[2016-10-31 00:52] VITALS: BP 103/66
[2016-10-31 08:25] VITALS: BP 115/78
[2016-10-31] MEDS: QUEtiapine FUMARATE 300 MG TABLET PO SCH ×2 (09:11→20:12)
[2016-10-31] MEDS: FLUoxetine HCL 20 MG CAPSULE PO SCH (09:11)
[2016-10-31] MEDS: CEPHALEXIN MONOHYDRATE 500 MG CAPSULE PO SCH ×3 (09:11→17:53)
[2016-10-31] MEDS: MUPIROCIN CALCIUM 2% 15 GM CREAM TP SCH ×2 (09:12→17:53)
[2016-10-31 16:00] VITALS: BP 111/69
[2016-11-01 00:11] VITALS: BP 106/65
[2016-11-01 08:11] VITALS: BP 123/80
[2016-11-01] MEDS: MUPIROCIN CALCIUM 2% 15 GM CREAM TP SCH ×2 (08:16→16:32)
[2016-11-01] MEDS: CEPHALEXIN MONOHYDRATE 500 MG CAPSULE PO SCH ×3 (08:17→16:31)
[2016-11-01] MEDS: CHOLECALCIFEROL (VIT D3) 1,000 UNITS TABLET PO SCH (08:17)
[2016-11-01] MEDS: QUEtiapine FUMARATE 300 MG TABLET PO SCH ×2 (08:17→20:18)
[2016-11-01] MEDS: FLUoxetine HCL 20 MG CAPSULE PO SCH (08:17)
[2016-11-01 16:00] VITALS: BP 134/74
[2016-11-02 02:26] VITALS: BP 116/70
[2016-11-02 08:09] VITALS: BP 130/86
[2016-11-02] MEDS: FLUoxetine HCL 20 MG CAPSULE PO SCH (08:20)
[2016-11-02] MEDS: CHOLECALCIFEROL (VIT D3) 1,000 UNITS TABLET PO SCH (08:20)
[2016-11-02] MEDS: CEPHALEXIN MONOHYDRATE 500 MG CAPSULE PO SCH ×3 (08:20→16:00)
[2016-11-02] MEDS: QUEtiapine FUMARATE 300 MG TABLET PO SCH ×2 (08:20→20:31)
[2016-11-02] MEDS: MUPIROCIN CALCIUM 2% 15 GM CREAM TP SCH ×2 (08:20→16:00)
[2016-11-02 16:02] VITALS: BP 137/79
[2016-11-03 07:06] VITALS: BP 113/66
[2016-11-03] MEDS: FLUoxetine HCL 20 MG CAPSULE PO SCH (08:22)
[2016-11-03] MEDS: MUPIROCIN CALCIUM 2% 15 GM CREAM TP SCH ×2 (08:22→17:13)
[2016-11-03] MEDS: CEPHALEXIN MONOHYDRATE 500 MG CAPSULE PO SCH ×3 (08:22→17:12)
[2016-11-03] MEDS: QUEtiapine FUMARATE 300 MG TABLET PO SCH ×2 (08:22→20:02)
[2016-11-03] MEDS: CHOLECALCIFEROL (VIT D3) 1,000 UNITS TABLET PO SCH (08:22)
[2016-11-03 09:19] VITALS: BP 118/70
[2016-11-03 17:53] VITALS: BP 120/73
[2016-11-04 00:10] VITALS: BP 108/63
[2016-11-04] MEDS: QUEtiapine FUMARATE 300 MG TABLET PO SCH ×2 (08:10→20:27)
[2016-11-04] MEDS: CEPHALEXIN MONOHYDRATE 500 MG CAPSULE PO SCH ×3 (08:10→17:06)
[2016-11-04] MEDS: FLUoxetine HCL 20 MG CAPSULE PO SCH (08:10)
[2016-11-04] MEDS: CHOLECALCIFEROL (VIT D3) 1,000 UNITS TABLET PO SCH (08:10)
[2016-11-04] MEDS: MUPIROCIN CALCIUM 2% 15 GM CREAM TP SCH ×2 (08:11→17:06)
[2016-11-04 09:13] VITALS: BP 127/95
[2016-11-04] MEDS ORDERED: CEPH500 PO (15:46)
[2016-11-04 16:00] VITALS: BP 118/71
[2016-11-05 06:21] VITALS: BP 123/82
[2016-11-05 08:30] VITALS: BP 141/77
[2016-11-05] MEDS: FLUoxetine HCL 20 MG CAPSULE PO SCH (09:12)
[2016-11-05] MEDS: QUEtiapine FUMARATE 300 MG TABLET PO SCH ×2 (09:12→20:27)
[2016-11-05] MEDS: CHOLECALCIFEROL (VIT D3) 1,000 UNITS TABLET PO SCH (09:12)
[2016-11-05] MEDS: CEPHALEXIN MONOHYDRATE 500 MG CAPSULE PO SCH ×3 (09:12→16:19)
[2016-11-05] MEDS: MUPIROCIN CALCIUM 2% 15 GM CREAM TP SCH ×2 (09:19→16:19)
[2016-11-05 16:39] VITALS: BP 137/90
[2016-11-05] MEDS ORDERED: CHOL10002 PO (18:21)
== END 2016-11-05 20:49 | disposition home or self-care (01) | DRG 750 ==
LOC: B2S 13:34 → EDSTATUS 14:11 → B2S 11-02 20:40
PROVIDERS: ADMIT Psychiatry & Neurology Psychiatry; ATTEND Psychiatry & Neurology Psychiatry
DX: F20.0 Paranoid schizophrenia (principal); R45.851 Suicidal ideations; L03.115 Cellulitis of right lower limb; K21.9 Gastro-esophageal reflux disease without esophagitis; E66.9 Obesity, unspecified; K59.00 Constipation, unspecified; G47.00 Insomnia, unspecified; E55.9 Vitamin D deficiency, unspecified; Z91.14 Patient's other noncompliance with medication regimen
CPT/HCPCS: 82306; J1200

== ENCOUNTER 2017-04-07 01:44 | Inpatient (IN) | payer MEDICAID ==
[~2017-04-07] VITALS: Ht 180.3 cm; Wt 119.0 kg
[~2017-04-07 01:44] MED LIST changes: +CHOL10002 PO
[2017-04-07 03:45] VITALS: BP 112/58
[2017-04-07] MEDS ORDERED: ZOLPIDEM TARTRATE 10 MG TABLET PO PRN (03:45)
[2017-04-07] MEDS ORDERED: HALOPERIDOL 5 MG TABLET PO PRN (03:45)
[2017-04-07] MEDS ORDERED: INFLUENZA VIRUS VACCINE QVS 2017-18 (3YR+)/PF 60 MCG/0.5 ML SYRINGE IM ONE (05:15)
[2017-04-07 09:34] VITALS: BP 129/89
[2017-04-07] MEDS: FLUoxetine HCL 10 MG CAPSULE PO SCH (11:43)
[2017-04-07] MEDS ORDERED: HYDROCORTISONE 1% 30 GM OINTMENT TP PRN (15:30)
[2017-04-07 19:08] VITALS: BP 120/88
[2017-04-07] MEDS: QUEtiapine FUMARATE 300 MG TABLET PO SCH (20:02)
[2017-04-08 05:51] VITALS: BP 124/86
[2017-04-08 06:48] LABS: BASOPHILS # (AUTO) 0.07 K/uL (0.00-0.20); BASOPHILS % (AUTO) 0.8 % (0.0-2.0); EOSINOPHILS # (AUTO) 0.59 K/uL (0.00-0.70); HEMATOCRIT 40.9 % (41-53); HEMOGLOBIN 13.5 g/dL (13.5-17.5); LYMPHOCYTES # (AUTO) 3.6 K/uL (1.0-4.8); LYMPHOCYTES % (AUTO) 42.8 % (22.0-44.0); MEAN CORPUSCULAR HEMOGLOBIN 27.9 pg (26.0-34.0); MEAN CORPUSCULAR HGB CONC 32.9 G/dL (31.0-37.0); MEAN CORPUSCULAR VOLUME 85 fL (80-100); MONOCYTES # (AUTO) 0.5 K/uL (0.1-1.0); MONOCYTES % (AUTO) 6.5 % (2.0-9.0); NEUTROPHILS # (AUTO) 3.6 K/uL (1.8-7.7); NEUTROPHILS % (AUTO) 42.8 % (40.0-70.0); PLATELET COUNT (AUTO) 198 K/uL (150-450); RED BLOOD CELL COUNT(AUTO) 4.82 MIL/uL (4.50-5.90); RED CELL DISTRIBUTION WIDTH 13.8 % (11.5-14.5); WHITE BLOOD COUNT (AUTO) 8.4 K/uL (4.5-11.0)
[2017-04-08 07:04] LABS: ALANINE AMINOTRANSFERASE 16 U/L (12-78); ALBUMIN 3.2 g/dL (3.4-5.0); ANION GAP 5 mmol/L (8-16); ASPARTATE AMINOTRANSFERASE 8 U/L (15-37); BILIRUBIN,TOTAL 0.4 mg/dL (0.1-1.0); CALCIUM, TOTAL 8.4 mg/dL (8.8-10.5); CARBON DIOXIDE 30 mmol/L (22-29); CHLORIDE 104 mmol/L (98-107); CHOL/HDL RATIO 2.7 (4.2-7.3); CREATININE 0.92 mg/dL (0.60-1.30); GLOMERULAR FILTR. RATE CALC > 60 mL/min (>60); POTASSIUM 4.2 mmol/L (3.5-5.1); SODIUM SERUM 139 mmol/L (136-145); TOTAL PROTEIN, SERUM 6.5 g/dL (6.4-8.2); UREA NITROGEN, BLOOD 12 mg/dL (7-18)
[2017-04-08] MEDS: FLUoxetine HCL 10 MG CAPSULE PO SCH (09:34)
[2017-04-08 16:00] VITALS: BP 135/86
[2017-04-08] MEDS: QUEtiapine FUMARATE 300 MG TABLET PO SCH (21:37)
[2017-04-09 06:51] VITALS: BP 116/69
[2017-04-09 09:11] VITALS: BP 124/69
[2017-04-09] MEDS: FLUoxetine HCL 10 MG CAPSULE PO SCH (10:34)
[2017-04-09 16:13] VITALS: BP 126/68
[2017-04-09] MEDS: QUEtiapine FUMARATE 300 MG TABLET PO SCH (20:23)
[2017-04-10 07:01] VITALS: BP 117/77
[2017-04-10] MEDS: FLUoxetine HCL 10 MG CAPSULE PO SCH (09:00)
[2017-04-10] MEDS: LORazepam 2 MG TABLET PO PRN (09:01)
[2017-04-10] MEDS: QUEtiapine FUMARATE 300 MG TABLET PO SCH (20:10)
[2017-04-11 06:53] VITALS: BP 108/60
[2017-04-11 09:06] VITALS: BP 131/88
[2017-04-11] MEDS: FLUoxetine HCL 10 MG CAPSULE PO SCH (09:20)
[2017-04-11 18:35] VITALS: BP 134/82
[2017-04-11] MEDS ORDERED: ACETAMINOPHEN 325 MG TABLET PO PRN (19:45)
[2017-04-11] MEDS: IBUPROFEN 600 MG TABLET PO PRN (20:10)
[2017-04-11] MEDS: QUEtiapine FUMARATE 300 MG TABLET PO SCH (21:00)
[2017-04-12 00:33] VITALS: BP 111/60
[2017-04-12] MEDS: IBUPROFEN 600 MG TABLET PO PRN (06:56)
[2017-04-12] MEDS: FLUoxetine HCL 10 MG CAPSULE PO SCH (09:13)
[2017-04-12 09:27] VITALS: BP 142/80
[2017-04-12 16:11] VITALS: BP 135/98
[2017-04-12] MEDS: QUEtiapine FUMARATE 300 MG TABLET PO SCH (21:10)
[2017-04-13] MEDS: FLUoxetine HCL 10 MG CAPSULE PO SCH (08:49)
[2017-04-13 09:11] VITALS: BP 124/87
[2017-04-13 16:42] VITALS: BP 130/80
[2017-04-13] MEDS: QUEtiapine FUMARATE 300 MG TABLET PO SCH (20:54)
[2017-04-14 08:05] VITALS: BP 144/84
[2017-04-14] MEDS: FLUoxetine HCL 10 MG CAPSULE PO SCH (09:02)
[2017-04-14 18:09] VITALS: BP 147/82
[2017-04-14] MEDS: QUEtiapine FUMARATE 300 MG TABLET PO SCH (21:07)
[2017-04-15 04:42] VITALS: BP 138/97
[2017-04-15] MEDS: FLUoxetine HCL 10 MG CAPSULE PO SCH ×2 (08:15→09:00)
[2017-04-15] MEDS: LORazepam 2 MG TABLET PO PRN (16:25)
[2017-04-15] MEDS: IBUPROFEN 600 MG TABLET PO PRN (17:09)
[2017-04-15 17:10] VITALS: BP 122/80
[2017-04-15] MEDS: QUEtiapine FUMARATE 300 MG TABLET PO SCH (20:07)
[2017-04-16] MEDS: FLUoxetine HCL 10 MG CAPSULE PO SCH ×2 (08:48→09:00)
[2017-04-16 11:00] VITALS: BP 132/84
== END 2017-04-16 15:30 | disposition home or self-care (01) | DRG 750 ==
LOC: 3EI 03:17 → 3EC 04-10 09:00
PROVIDERS: ADMIT Psychiatry & Neurology Psychiatry; ATTEND Psychiatry & Neurology Child & Adolescent Psychiatry
DX: F25.1 Schizoaffective disorder, depressive type (principal); R45.851 Suicidal ideations; Z59.0 Homelessness; E55.9 Vitamin D deficiency, unspecified; F15.10 Other stimulant abuse, uncomplicated; F31.9 Bipolar disorder, unspecified; F12.10 Cannabis abuse, uncomplicated; K59.00 Constipation, unspecified; Z28.21 Immunization not carried out because of patient refusal; Z79.899 Other long term (current) drug therapy
CPT/HCPCS: 99285

== ENCOUNTER 2017-05-09 22:38 | Inpatient (IN) | payer MEDICAID ==
[~2017-05-09] VITALS: Ht 182.9 cm; Wt 55.1 kg
[~2017-05-09 22:38] MED LIST changes: -CHOL10002 PO; -FLUO-191 PO
[2017-05-10] MEDS ORDERED: HALOPERIDOL 5 MG TABLET PO PRN (02:15)
[2017-05-10 02:35] VITALS: BP 121/75
[2017-05-10] MEDS ORDERED: INFLUENZA VIRUS VACCINE QVS 2017-18 (3YR+)/PF 60 MCG/0.5 ML SYRINGE IM ONE (03:15)
[2017-05-10] MEDS: NICOTINE 7 MG/24 HOUR PATCH TD SCH (08:11)
[2017-05-10 08:32] VITALS: BP 107/60
[2017-05-10 16:38] VITALS: BP 111/60
[2017-05-10] MEDS ORDERED: QUEtiapine FUMARATE 300 MG TABLET PO SCH (21:00)
[2017-05-11 06:19] VITALS: BP 125/67
[2017-05-11] MEDS: NICOTINE 7 MG/24 HOUR PATCH TD SCH (09:08)
[2017-05-11] MEDS: FLUoxetine HCL 20 MG CAPSULE PO SCH (09:08)
[2017-05-11 16:13] VITALS: BP 109/68
[2017-05-11] MEDS: QUEtiapine FUMARATE 200 MG TABLET PO SCH (20:10)
[2017-05-12 06:05] VITALS: BP 120/63
[2017-05-12] MEDS: FLUoxetine HCL 20 MG CAPSULE PO SCH (09:00)
[2017-05-12] MEDS: NICOTINE 7 MG/24 HOUR PATCH TD SCH (09:00)
[2017-05-12 16:04] VITALS: BP 112/76
[2017-05-12] MEDS: ACETAMINOPHEN 325 MG TABLET PO PRN (17:58)
[2017-05-12] MEDS: QUEtiapine FUMARATE 200 MG TABLET PO SCH (20:53)
[2017-05-13 00:01] VITALS: BP 110/67
[2017-05-13 09:00] VITALS: BP 124/66
[2017-05-13] MEDS: NICOTINE 7 MG/24 HOUR PATCH TD SCH (09:00)
[2017-05-13] MEDS: FLUoxetine HCL 20 MG CAPSULE PO SCH (09:00)
[2017-05-13] MEDS: LORazepam 2 MG TABLET PO PRN (13:09)
[2017-05-13 16:07] VITALS: BP 139/74
[2017-05-13] MEDS: ACETAMINOPHEN 325 MG TABLET PO PRN (16:25)
[2017-05-13] MEDS: QUEtiapine FUMARATE 200 MG TABLET PO SCH (20:07)
[2017-05-14] MEDS: NICOTINE 7 MG/24 HOUR PATCH TD SCH (09:00)
[2017-05-14] MEDS: FLUoxetine HCL 20 MG CAPSULE PO SCH (09:00)
[2017-05-14 10:11] VITALS: BP 115/75
[2017-05-14] MEDS: LORazepam 2 MG TABLET PO PRN ×2 (10:11→16:05)
[2017-05-14] MEDS: ACETAMINOPHEN 325 MG TABLET PO PRN (10:56)
[2017-05-14 16:04] VITALS: BP 127/77
[2017-05-14] MEDS: QUEtiapine FUMARATE 100 MG TABLET PO PRN (18:06)
[2017-05-14] MEDS: QUEtiapine FUMARATE 200 MG TABLET PO SCH (20:05)
[2017-05-15 06:40] VITALS: BP 108/61
[2017-05-15] MEDS: NICOTINE 7 MG/24 HOUR PATCH TD SCH ×2 (08:28→09:00)
[2017-05-15] MEDS: FLUoxetine HCL 20 MG CAPSULE PO SCH ×2 (08:28→09:00)
[2017-05-15 09:00] VITALS: BP 133/77
[2017-05-15 16:15] VITALS: BP 130/83
[2017-05-15] MEDS ORDERED: ACETAMINOPHEN 325 MG TABLET PO PRN (17:30)
[2017-05-15] MEDS ORDERED: IBUPROFEN 600 MG TABLET PO PRN (17:30)
[2017-05-15] MEDS ORDERED: LORazepam 2 MG/ML VIAL IM ONE (19:45)
[2017-05-15] MEDS ORDERED: DiphenhydrAMINE HCL 50 MG/ML VIAL IM ONE (19:45)
[2017-05-15] MEDS ORDERED: HALOPERIDOL LACTATE 5 MG/ML VIAL IM ONE (19:45)
[2017-05-15 20:30] VITALS: BP 120/68
[2017-05-15 21:00] VITALS: BP_SYST 120; BP_SYST 123; BP_DIAS 68; BP_DIAS 72
[2017-05-15] MEDS: QUEtiapine FUMARATE 200 MG TABLET PO SCH (21:44)
[2017-05-16] MEDS: FLUoxetine HCL 20 MG CAPSULE PO SCH (09:00)
[2017-05-16] MEDS: NICOTINE 7 MG/24 HOUR PATCH TD SCH (09:00)
[2017-05-16 10:05] VITALS: BP 140/78
[2017-05-16] MEDS: LORazepam 2 MG TABLET PO PRN (10:07)
[2017-05-16 16:12] VITALS: BP 130/75
[2017-05-16] MEDS: QUEtiapine FUMARATE 200 MG TABLET PO SCH (20:09)
[2017-05-17] MEDS: FLUoxetine HCL 20 MG CAPSULE PO SCH (11:42)
[2017-05-17] MEDS: NICOTINE 7 MG/24 HOUR PATCH TD SCH (11:42)
[2017-05-17] MEDS: LORazepam 2 MG TABLET PO PRN ×2 (13:33→20:02)
[2017-05-17] MEDS: QUEtiapine FUMARATE 100 MG TABLET PO PRN ×2 (13:33→17:48)
[2017-05-17 16:11] VITALS: BP 112/75
[2017-05-17] MEDS: QUEtiapine FUMARATE 200 MG TABLET PO SCH (20:02)
[2017-05-18 03:39] VITALS: BP 101/61
[2017-05-18 08:20] LABS: BASOPHILS % (AUTO) 1.1 % (0.0-2.0); EOSINOPHILS % (AUTO) 5.4 % (1.0-6.0); HEMATOCRIT 42.7 % (41-53); HEMOGLOBIN 14.4 g/dL (13.5-17.5); LYMPHOCYTES # (AUTO) 3.2 K/uL (1.0-4.8); LYMPHOCYTES % (AUTO) 44.9 % (22.0-44.0); MEAN CORPUSCULAR HGB CONC 33.6 G/dL (31.0-37.0); MEAN CORPUSCULAR VOLUME 83 fL (80-100); MONOCYTES # (AUTO) 0.4 K/uL (0.1-1.0); MONOCYTES % (AUTO) 5.9 % (2.0-9.0); NEUTROPHILS # (AUTO) 3.1 K/uL (1.8-7.7); NEUTROPHILS % (AUTO) 42.7 % (40.0-70.0); PLATELET COUNT (AUTO) 197 K/uL (150-450); RED BLOOD CELL COUNT(AUTO) 5.13 MIL/uL (4.50-5.90); RED CELL DISTRIBUTION WIDTH 13.7 % (11.5-14.5); WHITE BLOOD COUNT (AUTO) 7.2 K/uL (4.5-11.0)
[2017-05-18] MEDS: NICOTINE 7 MG/24 HOUR PATCH TD SCH ×2 (08:30→09:52)
[2017-05-18] MEDS: FLUoxetine HCL 20 MG CAPSULE PO SCH (08:30)
[2017-05-18] MEDS ORDERED: INSULIN DETEMIR 100 UNITS/ML SQ SCH (09:00)
[2017-05-18 09:01] LABS: ALANINE AMINOTRANSFERASE 34 U/L (12-78); ALBUMIN 3.6 g/dL (3.4-5.0); ANION GAP 6 mmol/L (8-16); ASPARTATE AMINOTRANSFERASE 16 U/L (15-37); BILIRUBIN,TOTAL 0.3 mg/dL (0.1-1.0); CALCIUM, TOTAL 8.6 mg/dL (8.8-10.5); CARBON DIOXIDE 30 mmol/L (22-29); CHLORIDE 102 mmol/L (98-107); CHOL/HDL RATIO 3.1 (4.2-7.3); CREATININE 0.99 mg/dL (0.60-1.30); GLOMERULAR FILTR. RATE CALC > 60 mL/min (>60); POTASSIUM 4.8 mmol/L (3.5-5.1); SODIUM SERUM 138 mmol/L (136-145); THYROID STIMULATING HORMONE 1.12 uIU/mL (0.36-3.74); TOTAL PROTEIN, SERUM 6.5 g/dL (6.4-8.2); UREA NITROGEN, BLOOD 13 mg/dL (7-18)
[2017-05-18 09:02] LABS: GLUCOSE,POINT OF CARE 137 MG/DL (70-110)
[2017-05-18] MEDS ORDERED: INSU100V12 SQ (11:06)
[2017-05-18] MEDS ORDERED: FLUO-191 PO (11:06)
== END 2017-05-18 13:25 | disposition home or self-care (01) | DRG 750 ==
LOC: B2S 05-10 02:04
PROVIDERS: ADMIT Psychiatry & Neurology Child & Adolescent Psychiatry; ATTEND Psychiatry & Neurology Child & Adolescent Psychiatry
DX: F25.1 Schizoaffective disorder, depressive type (principal); R45.851 Suicidal ideations; Z59.0 Homelessness; E55.9 Vitamin D deficiency, unspecified; Z28.21 Immunization not carried out because of patient refusal; F12.90 Cannabis use, unspecified, uncomplicated; F17.200 Nicotine dependence, unspecified, uncomplicated; F31.9 Bipolar disorder, unspecified; F41.9 Anxiety disorder, unspecified; R40.0 Somnolence; F15.90 Other stimulant use, unspecified, uncomplicated; S43.401A Unspecified sprain of right shoulder joint, initial encounter; Z79.899 Other long term (current) drug therapy; X58.XXXA Exposure to other specified factors, initial encounter; Y93.89 Activity, other specified; Y92.89 Other specified places as the place of occurrence of the external cause; Y99.8 Other external cause status; Z91.5 Personal history of self-harm
CPT/HCPCS: 82962; 84439; 84443; 87081; 90471; J1200; J1630; J2060

== ENCOUNTER 2017-07-30 18:13 | Inpatient (IN) | payer MEDICAID ==
[~2017-07-30] VITALS: Ht 182.9 cm; Wt 121.0 kg
[~2017-07-30 18:13] MED LIST changes: +FLUO-191 PO
[2017-07-30] MEDS ORDERED: LORazepam 2 MG TABLET PO PRN (19:15)
[2017-07-30] MEDS ORDERED: HALOPERIDOL 5 MG TABLET PO PRN (19:15)
[2017-07-30] MEDS ORDERED: ZOLPIDEM TARTRATE 10 MG TABLET PO PRN (19:15)
[2017-07-30] MEDS: QUEtiapine FUMARATE 100 MG TABLET PO SCH (20:09)
[2017-07-30] MEDS ORDERED: INFLUENZA VIRUS VACCINE QVS 2017-18 (3YR+)/PF 60 MCG/0.5 ML SYRINGE IM ONE (20:30)
[2017-07-31 03:35] VITALS: BP 102/67
[2017-07-31 06:23] LABS: GLUCOMETER DEV NAME(LOC) 3EI B; GLUCOSE,POINT OF CARE 114 MG/DL (70-110)
[2017-07-31 07:04] LABS: CHOL/HDL RATIO 2.6 (4.2-7.3)
[2017-07-31 10:24] VITALS: BP 128/65
[2017-07-31] MEDS: FLUoxetine HCL 20 MG CAPSULE PO SCH (10:42)
[2017-07-31 16:30] VITALS: BP 113/72
[2017-07-31] MEDS: QUEtiapine FUMARATE 100 MG TABLET PO SCH (20:42)
[2017-08-01 08:57] VITALS: BP 113/61
[2017-08-01] MEDS: FLUoxetine HCL 20 MG CAPSULE PO SCH (10:09)
[2017-08-01 17:00] VITALS: BP 134/75
[2017-08-01] MEDS: QUEtiapine FUMARATE 200 MG TABLET PO SCH (21:20)
[2017-08-02 01:23] VITALS: BP 127/71
[2017-08-02] MEDS: FLUoxetine HCL 20 MG CAPSULE PO SCH (10:05)
[2017-08-02 11:14] VITALS: BP 109/66
[2017-08-02 19:18] VITALS: BP 122/70
[2017-08-02] MEDS: QUEtiapine FUMARATE 200 MG TABLET PO SCH (20:39)
[2017-08-03] MEDS: FLUoxetine HCL 20 MG CAPSULE PO SCH (09:18)
[2017-08-03 10:54] VITALS: BP 100/46
[2017-08-03 17:00] VITALS: BP 138/79
[2017-08-03] MEDS: QUEtiapine FUMARATE 200 MG TABLET PO SCH (20:37)
[2017-08-04] MEDS: FLUoxetine HCL 20 MG CAPSULE PO SCH (08:05)
[2017-08-04 11:54] VITALS: BP 158/99
[2017-08-04] MEDS: QUEtiapine FUMARATE 200 MG TABLET PO SCH (20:03)
[2017-08-04 22:54] VITALS: BP 140/80
[2017-08-05] MEDS: FLUoxetine HCL 20 MG CAPSULE PO SCH (09:56)
[2017-08-05 09:58] VITALS: BP 102/62
[2017-08-05] MEDS: QUEtiapine FUMARATE 200 MG TABLET PO SCH (20:21)
[2017-08-05 21:15] VITALS: BP 142/76
[2017-08-06] MEDS: FLUoxetine HCL 20 MG CAPSULE PO SCH (10:17)
[2017-08-06 13:46] VITALS: BP 111/58
== END 2017-08-06 14:20 | disposition home or self-care (01) | DRG 750 ==
LOC: 3EI 18:13
PROC: 3E0234Z Introduction of Serum, Toxoid and Vaccine into Muscle, Percutaneous Approach (ICD-10-PCS; principal; 2017-07-30)
DX: F25.1 Schizoaffective disorder, depressive type (principal); E11.9 Type 2 diabetes mellitus without complications; R45.851 Suicidal ideations; F15.90 Other stimulant use, unspecified, uncomplicated; K59.00 Constipation, unspecified; F29 Unspecified psychosis not due to a substance or known physiological condition; Z79.899 Other long term (current) drug therapy; Z59.0 Homelessness; Z23 Encounter for immunization
CPT/HCPCS: 82962; 87081

== ENCOUNTER 2018-02-28 19:14 | Inpatient (IN) | payer MEDICAID ==
[~2018-02-28] VITALS: Ht 180.3 cm; Wt 127.0 kg
[2018-02-28] MEDS ORDERED: HALOPERIDOL 5 MG TABLET PO PRN (21:45)
[2018-02-28] MEDS ORDERED: ZOLPIDEM TARTRATE 10 MG TABLET PO PRN (21:45)
[2018-02-28 21:54] VITALS: BP 133/87
[2018-02-28] MEDS ORDERED: ALBUTEROL SULFATE HFA 90 MCG/PUFF 8 GM INHALER IH PRN (22:15)
[2018-02-28] MEDS ORDERED: MAGNESIUM HYDROXIDE SUSPENSION 30 ML UDCUP PO PRN (22:15)
[2018-02-28] MEDS ORDERED: LOPERAMIDE HCL 2 MG CAPSULE PO PRN (22:15)
[2018-02-28] MEDS ORDERED: MAG HYDROX/AL HYDROX/SIMETH ES 30 ML SUSPENSION UDCUP PO PRN (22:15)
[2018-02-28] MEDS ORDERED: CloNIDine HCL 0.1 MG TABLET PO PRN (22:15)
[2018-02-28] MEDS ORDERED: ACETAMINOPHEN 325 MG TABLET PO PRN (22:15)
[2018-02-28] MEDS ORDERED: NICOTINE 14 MG/24 HOUR PATCH TD PRN (22:15)
[2018-02-28] MEDS ORDERED: DOCUSATE SODIUM 100 MG CAPSULE PO PRN (22:15)
[2018-02-28] MEDS ORDERED: ONDANSETRON HCL 4 MG TABLET PO PRN (22:15)
[2018-02-28] MEDS ORDERED: GuaiFENesin/D-METHORPHAN [SUGAR-FREE] 200-20MG/10 ML SYRUP UDCUP PO PRN (22:15)
[2018-02-28] MEDS ORDERED: IBUPROFEN 400 MG TABLET PO PRN (22:15)
[2018-03-01 06:07] VITALS: BP 130/86
[2018-03-01 08:18] VITALS: BP 120/75
[2018-03-01 08:21] LABS: EOSINOPHILS % (AUTO) 6.6 % (1.0-6.0); HEMATOCRIT 40.1 % (41-53); HEMOGLOBIN 13.4 g/dL (13.5-17.5); LYMPHOCYTES # (AUTO) 2.7 K/uL (1.0-4.8); LYMPHOCYTES % (AUTO) 38.9 % (22.0-44.0); MEAN CORPUSCULAR HEMOGLOBIN 27.4 pg (26.0-34.0); MEAN CORPUSCULAR HGB CONC 33.4 G/dL (31.0-37.0); MEAN CORPUSCULAR VOLUME 82 fL (80-100); MONOCYTES # (AUTO) 0.5 K/uL (0.1-1.0); NEUTROPHILS # (AUTO) 3.2 K/uL (1.8-7.7); NEUTROPHILS % (AUTO) 46.5 % (40.0-70.0); PLATELET COUNT (AUTO) 258 K/uL (150-450); RED BLOOD CELL COUNT(AUTO) 4.89 MIL/uL (4.50-5.90); RED CELL DISTRIBUTION WIDTH 13.1 % (11.5-14.5)
[2018-03-01 08:48] LABS: HEMOGLOBIN A1C 5.2 % (4.5-6.2)
[2018-03-01 09:25] LABS: ALANINE AMINOTRANSFERASE 54 U/L (12-78); ALBUMIN 3.5 g/dL (3.4-5.0); ALKALINE PHOSPHATASE 27 U/L (46-116); ASPARTATE AMINOTRANSFERASE 15 U/L (15-37); BILIRUBIN,TOTAL 0.3 mg/dL (0.1-1.0); CALCIUM, TOTAL 8.5 mg/dL (8.8-10.5); CHLORIDE 104 mmol/L (98-107); CHOLESTEROL 173 mg/dL (131-200); CREATININE 0.94 mg/dL (0.60-1.30); GLOMERULAR FILTR. RATE CALC > 60 mL/min (>60); GLUCOSE,RANDOM 83 mg/dL (70-110); HDL CHOLESTEROL 61 mg/dL (40-60); POTASSIUM 4.4 mmol/L (3.5-5.1); SODIUM SERUM 140 mmol/L (136-145); TOTAL PROTEIN, SERUM 6.6 g/dL (6.4-8.2); TRIGLYCERIDES 68 mg/dL (15-150); UREA NITROGEN, BLOOD 18 mg/dL (7-18)
[2018-03-01 09:26] LABS: CHOL/HDL RATIO 2.8 (4.2-7.3); FREE T4 (FREE THYROXINE) 0.92 ng/dL (0.76-1.46); LDL CHOL (CALC.) 98 mg/dL (0-130)
[2018-03-01 09:29] LABS: ANION GAP 16 mmol/L (8-16); CARBON DIOXIDE 20 mmol/L (22-29)
[2018-03-01] MEDS ORDERED: QUET200T PO (11:26)
[2018-03-01] MEDS ORDERED: DOCUSATE SODIUM 100 MG CAPSULE PO PRN (14:30)
[2018-03-01 16:11] VITALS: BP 120/67
[2018-03-01] MEDS: FERROUS SULFATE 325 MG EC TABLET PO SCH (16:32)
[2018-03-01] MEDS: QUEtiapine FUMARATE 200 MG TABLET PO SCH (20:14)
[2018-03-01] MEDS: PETROLATUM,WHITE 71 GM JELLY TP PRN (20:16)
[2018-03-02 06:20] VITALS: BP 112/61
[2018-03-02] MEDS: FERROUS SULFATE 325 MG EC TABLET PO SCH ×3 (06:34→16:13)
[2018-03-02 08:26] VITALS: BP 107/57
[2018-03-02] MEDS: FLUoxetine HCL 20 MG CAPSULE PO SCH (08:26)
[2018-03-02 16:06] VITALS: BP 124/83
[2018-03-02] MEDS: QUEtiapine FUMARATE 200 MG TABLET PO SCH (20:03)
[2018-03-03 06:13] VITALS: BP 120/81
[2018-03-03] MEDS: FERROUS SULFATE 325 MG EC TABLET PO SCH ×3 (06:34→16:10)
[2018-03-03] MEDS: FLUoxetine HCL 20 MG CAPSULE PO SCH (10:18)
[2018-03-03 16:02] VITALS: BP 106/68
[2018-03-03] MEDS: CHOLECALCIFEROL (VIT D3) 400 UNITS TABLET PO SCH (16:37)
[2018-03-03] MEDS: PETROLATUM,WHITE 71 GM JELLY TP PRN (19:39)
[2018-03-03] MEDS: QUEtiapine FUMARATE 200 MG TABLET PO SCH (20:02)
[2018-03-04 04:58] VITALS: BP 116/74
[2018-03-04] MEDS: FERROUS SULFATE 325 MG EC TABLET PO SCH ×3 (06:43→16:44)
[2018-03-04] MEDS: CHOLECALCIFEROL (VIT D3) 400 UNITS TABLET PO SCH ×3 (08:51→16:43)
[2018-03-04] MEDS: FLUoxetine HCL 20 MG CAPSULE PO SCH (08:51)
[2018-03-04 09:36] VITALS: BP 117/57
[2018-03-04 11:08] VITALS: BP 150/75
[2018-03-04] MEDS: LORazepam 2 MG TABLET PO PRN ×2 (12:26→18:31)
[2018-03-04 13:44] VITALS: BP 122/80
[2018-03-04 16:44] VITALS: BP 121/76
[2018-03-04] MEDS: QUEtiapine FUMARATE 200 MG TABLET PO SCH (20:11)
[2018-03-05 06:02] VITALS: BP 118/78
[2018-03-05] MEDS: FERROUS SULFATE 325 MG EC TABLET PO SCH ×3 (06:48→16:19)
[2018-03-05] MEDS: CHOLECALCIFEROL (VIT D3) 400 UNITS TABLET PO SCH ×3 (08:17→16:19)
[2018-03-05 08:38] VITALS: BP 111/69
[2018-03-05] MEDS ORDERED: FLUoxetine HCL 20 MG CAPSULE PO SCH (09:00)
[2018-03-05] MEDS: LORazepam 2 MG TABLET PO PRN (15:53)
[2018-03-05 16:18] VITALS: BP 114/78
[2018-03-05] MEDS: QUEtiapine FUMARATE 300 MG TABLET PO SCH (20:33)
[2018-03-06] MEDS: FERROUS SULFATE 325 MG EC TABLET PO SCH ×3 (06:31→17:24)
[2018-03-06 07:04] VITALS: BP 108/63
[2018-03-06 08:38] VITALS: BP 118/61
[2018-03-06] MEDS: CHOLECALCIFEROL (VIT D3) 400 UNITS TABLET PO SCH ×3 (10:28→17:24)
[2018-03-06] MEDS: FLUoxetine HCL 20 MG CAPSULE PO SCH (10:29)
[2018-03-06 16:42] VITALS: BP 120/71
[2018-03-06] MEDS: QUEtiapine FUMARATE 300 MG TABLET PO SCH (20:52)
[2018-03-07 01:27] VITALS: BP 109/62
[2018-03-07] MEDS: FERROUS SULFATE 325 MG EC TABLET PO SCH ×3 (06:17→17:06)
[2018-03-07 08:04] VITALS: BP 111/64
[2018-03-07] MEDS: FLUoxetine HCL 20 MG CAPSULE PO SCH (09:52)
[2018-03-07] MEDS: CHOLECALCIFEROL (VIT D3) 400 UNITS TABLET PO SCH ×3 (09:53→17:00)
[2018-03-07] MEDS: BuPROPion HCL 100 MG SR TABLET PO SCH ×2 (11:23→17:06)
[2018-03-07 16:37] VITALS: BP 13/88
[2018-03-07] MEDS: LORazepam 2 MG TABLET PO PRN (17:06)
[2018-03-07] MEDS: QUEtiapine FUMARATE 300 MG TABLET PO SCH (21:13)
[2018-03-08 06:59] VITALS: BP 112/68
[2018-03-08] MEDS: FERROUS SULFATE 325 MG EC TABLET PO SCH ×3 (06:59→16:35)
[2018-03-08 08:27] VITALS: BP 111/60
[2018-03-08] MEDS: FLUoxetine HCL 20 MG CAPSULE PO SCH (09:42)
[2018-03-08] MEDS: CHOLECALCIFEROL (VIT D3) 400 UNITS TABLET PO SCH ×3 (09:42→16:37)
[2018-03-08] MEDS: BuPROPion HCL 100 MG SR TABLET PO SCH ×2 (09:43→16:36)
[2018-03-08 16:10] VITALS: BP 123/95
[2018-03-08] MEDS: LORazepam 2 MG TABLET PO PRN (16:36)
[2018-03-08] MEDS: QUEtiapine FUMARATE 300 MG TABLET PO SCH (20:03)
[2018-03-09] MEDS: FERROUS SULFATE 325 MG EC TABLET PO SCH ×3 (06:10→16:11)
[2018-03-09 06:32] VITALS: BP 126/81
[2018-03-09 08:08] VITALS: BP 102/67
[2018-03-09] MEDS: FLUoxetine HCL 20 MG CAPSULE PO SCH (09:28)
[2018-03-09] MEDS: CHOLECALCIFEROL (VIT D3) 400 UNITS TABLET PO SCH ×3 (09:29→16:11)
[2018-03-09] MEDS: BuPROPion HCL 100 MG SR TABLET PO SCH ×2 (09:32→16:11)
[2018-03-09 12:56] VITALS: BP 136/88
[2018-03-09] MEDS: LORazepam 2 MG TABLET PO PRN ×2 (12:56→16:56)
[2018-03-09 16:04] VITALS: BP 109/69
[2018-03-09] MEDS: QUEtiapine FUMARATE 300 MG TABLET PO SCH (20:29)
[2018-03-10] VITALS: BP 101/63
[2018-03-10] MEDS: FERROUS SULFATE 325 MG EC TABLET PO SCH ×3 (06:33→16:23)
[2018-03-10 08:26] VITALS: BP 118/74
[2018-03-10] MEDS: FLUoxetine HCL 20 MG CAPSULE PO SCH (09:58)
[2018-03-10] MEDS: BuPROPion HCL 100 MG SR TABLET PO SCH ×2 (09:58→16:22)
[2018-03-10] MEDS: CHOLECALCIFEROL (VIT D3) 400 UNITS TABLET PO SCH ×3 (09:58→16:23)
[2018-03-10 16:22] VITALS: BP 121/58
[2018-03-10] MEDS: QUEtiapine FUMARATE 300 MG TABLET PO SCH (20:18)
[2018-03-11 05:53] VITALS: BP 120/82
[2018-03-11] MEDS: FERROUS SULFATE 325 MG EC TABLET PO SCH ×2 (06:18→11:46)
[2018-03-11] MEDS: CHOLECALCIFEROL (VIT D3) 400 UNITS TABLET PO SCH ×2 (08:42→13:09)
[2018-03-11] MEDS: BuPROPion HCL 100 MG SR TABLET PO SCH (08:42)
[2018-03-11] MEDS: FLUoxetine HCL 20 MG CAPSULE PO SCH (08:42)
[2018-03-11 08:45] VITALS: BP 114/65
[2018-03-11] MEDS ORDERED: BUPR100SR PO (12:14)
== END 2018-03-11 13:51 | disposition home or self-care (01) | DRG 750 ==
LOC: B2S 21:39
PROVIDERS: ADMIT Psychiatry & Neurology Psychiatry; ATTEND Psychiatry & Neurology Psychiatry
DX: F25.1 Schizoaffective disorder, depressive type (principal); R45.851 Suicidal ideations; E11.9 Type 2 diabetes mellitus without complications; D64.9 Anemia, unspecified; E55.9 Vitamin D deficiency, unspecified; F12.90 Cannabis use, unspecified, uncomplicated; F15.90 Other stimulant use, unspecified, uncomplicated; S61.519A Laceration without foreign body of unspecified wrist, initial encounter; K59.00 Constipation, unspecified; W45.8XXA Other foreign body or object entering through skin, initial encounter; Y93.89 Activity, other specified; Y92.89 Other specified places as the place of occurrence of the external cause; Y99.8 Other external cause status; Z59.0 Homelessness; Z91.5 Personal history of self-harm; Z79.899 Other long term (current) drug therapy
CPT/HCPCS: 82306; 83036; 84439; 84443; 87081

== ENCOUNTER 2018-04-25 17:51 | Inpatient (IN) | payer MEDICAID ==
[~2018-04-25] VITALS: Ht 180.3 cm; Wt 119.7 kg
[~2018-04-25 17:51] MED LIST changes: +BUPR100SR PO; +QUET200T PO; -QUET300T2 PO
[2018-04-25] MEDS ORDERED: LORazepam 2 MG TABLET PO PRN (20:45)
[2018-04-25] MEDS ORDERED: ZOLPIDEM TARTRATE 10 MG TABLET PO PRN (20:45)
[2018-04-25 21:10] VITALS: BP 134/95
[2018-04-25 21:35] VITALS: BP 131/85
[2018-04-25] MEDS ORDERED: ACETAMINOPHEN 325 MG TABLET PO PRN (21:45)
[2018-04-25] MEDS ORDERED: ALBUTEROL SULFATE HFA 90 MCG/PUFF 8 GM INHALER IH PRN (21:45)
[2018-04-25] MEDS ORDERED: MAGNESIUM HYDROXIDE SUSPENSION 30 ML UDCUP PO PRN (21:45)
[2018-04-25] MEDS ORDERED: GuaiFENesin/D-METHORPHAN [SUGAR-FREE] 200-20MG/10 ML SYRUP UDCUP PO PRN (21:45)
[2018-04-25] MEDS ORDERED: LOPERAMIDE HCL 2 MG CAPSULE PO PRN (21:45)
[2018-04-25] MEDS ORDERED: NICOTINE 14 MG/24 HOUR PATCH TD PRN (21:45)
[2018-04-25] MEDS ORDERED: DOCUSATE SODIUM 100 MG CAPSULE PO PRN (21:45)
[2018-04-25] MEDS ORDERED: CloNIDine HCL 0.1 MG TABLET PO PRN (21:45)
[2018-04-25] MEDS ORDERED: ONDANSETRON HCL 4 MG TABLET PO PRN (21:45)
[2018-04-25] MEDS ORDERED: PETROLATUM,WHITE 71 GM JELLY TP PRN (21:45)
[2018-04-25] MEDS ORDERED: IBUPROFEN 400 MG TABLET PO PRN (21:45)
[2018-04-25] MEDS ORDERED: MAG HYDROX/AL HYDROX/SIMETH ES 30 ML SUSPENSION UDCUP PO PRN (21:45)
[2018-04-26 06:08] VITALS: BP 132/84
[2018-04-26 08:00] VITALS: BP 138/71
[2018-04-26 08:29] LABS: BASOPHILS % (AUTO) 0.6 % (0.0-2.0); EOSINOPHILS % (AUTO) 7.8 % (1.0-6.0); HEMATOCRIT 36.6 % (41-53); HEMOGLOBIN 12.4 g/dL (13.5-17.5); LYMPHOCYTES # (AUTO) 2.2 K/uL (1.0-4.8); LYMPHOCYTES % (AUTO) 35.6 % (22.0-44.0); MEAN CORPUSCULAR HEMOGLOBIN 27.8 pg (26.0-34.0); MEAN CORPUSCULAR VOLUME 82 fL (80-100); MONOCYTES # (AUTO) 0.4 K/uL (0.1-1.0); MONOCYTES % (AUTO) 5.8 % (2.0-9.0); NEUTROPHILS # (AUTO) 3.1 K/uL (1.8-7.7); NEUTROPHILS % (AUTO) 50.2 % (40.0-70.0); PLATELET COUNT (AUTO) 208 K/uL (150-450); RED BLOOD CELL COUNT(AUTO) 4.47 MIL/uL (4.50-5.90); RED CELL DISTRIBUTION WIDTH 13.4 % (11.5-14.5)
[2018-04-26 08:54] LABS: ALANINE AMINOTRANSFERASE 28 U/L (12-78); ALBUMIN 3.2 g/dL (3.4-5.0); ALKALINE PHOSPHATASE 28 U/L (46-116); ANION GAP 4 mmol/L (8-16); ASPARTATE AMINOTRANSFERASE 13 U/L (15-37); BILIRUBIN,TOTAL 0.1 mg/dL (0.1-1.0); CALCIUM, TOTAL 7.9 mg/dL (8.8-10.5); CARBON DIOXIDE 29 mmol/L (22-29); CHLORIDE 105 mmol/L (98-107); CHOL/HDL RATIO 2.5 (4.2-7.3); CHOLESTEROL 145 mg/dL (131-200); CREATININE 0.81 mg/dL (0.60-1.30); FREE T4 (FREE THYROXINE) 0.87 ng/dL (0.76-1.46); GLOMERULAR FILTR. RATE CALC > 60 mL/min (>60); GLUCOSE,RANDOM 86 mg/dL (70-110); HDL CHOLESTEROL 59 mg/dL (40-60); LDL CHOL (CALC.) 79 mg/dL (0-130); POTASSIUM 4.3 mmol/L (3.5-5.1); SODIUM SERUM 138 mmol/L (136-145); THYROID STIMULATING HORMONE 0.36 uIU/mL (0.36-3.74); TOTAL PROTEIN, SERUM 6.1 g/dL (6.4-8.2); TRIGLYCERIDES 37 mg/dL (15-150); UREA NITROGEN, BLOOD 13 mg/dL (7-18)
[2018-04-26 08:58] LABS: HEMOGLOBIN A1C 5.5 % (4.5-6.2)
[2018-04-26 15:30] VITALS: BP 136/60
[2018-04-26 16:02] VITALS: BP 136/60
[2018-04-26] MEDS: QUEtiapine FUMARATE 300 MG TABLET PO SCH (20:05)
[2018-04-27 05:59] VITALS: BP 134/88
[2018-04-27] MEDS: FERROUS SULFATE 325 MG EC TABLET PO SCH ×2 (06:46→16:33)
[2018-04-27 08:02] VITALS: BP 114/60
[2018-04-27] MEDS: BuPROPion HCL XL 150 MG ER TABLET PO SCH (11:39)
[2018-04-27 16:00] VITALS: BP 126/84
[2018-04-27] MEDS: QUEtiapine FUMARATE 300 MG TABLET PO SCH (20:31)
[2018-04-28] MEDS: FERROUS SULFATE 325 MG EC TABLET PO SCH ×2 (05:53→16:59)
[2018-04-28 06:00] VITALS: BP 118/68
[2018-04-28] MEDS: BuPROPion HCL XL 150 MG ER TABLET PO SCH (08:27)
[2018-04-28 09:03] VITALS: BP 114/65
[2018-04-28 16:24] VITALS: BP 134/84
[2018-04-28] MEDS: QUEtiapine FUMARATE 300 MG TABLET PO SCH (20:10)
[2018-04-29 06:35] VITALS: BP 116/66
[2018-04-29] MEDS: FERROUS SULFATE 325 MG EC TABLET PO SCH ×2 (06:47→16:18)
[2018-04-29 08:11] VITALS: BP 131/89
[2018-04-29] MEDS: BuPROPion HCL XL 150 MG ER TABLET PO SCH (08:31)
[2018-04-29 16:05] VITALS: BP_SYST 134; BP_SYST 151; BP_DIAS 71; BP_DIAS 77
[2018-04-29] MEDS ORDERED: QUEtiapine FUMARATE 300 MG TABLET PO SCH ×2 (19:00→21:00)
[2018-04-29 20:23] VITALS: BP 130/75
[2018-04-30 01:21] VITALS: BP 109/61
[2018-04-30] MEDS: FERROUS SULFATE 325 MG EC TABLET PO SCH (07:08)
[2018-04-30 08:05] VITALS: BP 131/72
[2018-04-30] MEDS: BuPROPion HCL XL 150 MG ER TABLET PO SCH (08:25)
[2018-04-30] MEDS ORDERED: BUPR-93 PO (10:20)
== END 2018-04-30 15:10 | disposition home or self-care (01) | DRG 750 ==
LOC: B2S 20:31
PROVIDERS: ADMIT Psychiatry & Neurology Child & Adolescent Psychiatry; ATTEND Psychiatry & Neurology Child & Adolescent Psychiatry
DX: F25.1 Schizoaffective disorder, depressive type (principal); R45.851 Suicidal ideations; Z59.0 Homelessness; D64.9 Anemia, unspecified; E55.9 Vitamin D deficiency, unspecified; F12.90 Cannabis use, unspecified, uncomplicated; F41.9 Anxiety disorder, unspecified; K59.00 Constipation, unspecified; F15.90 Other stimulant use, unspecified, uncomplicated; Z91.5 Personal history of self-harm
CPT/HCPCS: 83036; 84439; 84443; 87081

== ENCOUNTER 2018-08-13 11:52 | Inpatient (IN) | payer MEDICAID ==
[~2018-08-13] VITALS: Ht 180.3 cm; Wt 123.9 kg
[~2018-08-13 11:52] MED LIST changes: +AMLO-511 PO; +BUPR-93 PO; -BUPR100SR PO; +QUET300T2 PO
[2018-08-13 13:04] LABS: BASOPHILS % (AUTO) 1.1 % (0.0-2.0); EOSINOPHILS % (AUTO) 2.9 % (1.0-6.0); HEMOGLOBIN 14.6 g/dL (13.5-17.5); LYMPHOCYTES # (AUTO) 2.4 K/uL (1.0-4.8); LYMPHOCYTES % (AUTO) 28.1 % (22.0-44.0); MEAN CORPUSCULAR HEMOGLOBIN 26.9 pg (26.0-34.0); MEAN CORPUSCULAR HGB CONC 33.1 G/dL (31.0-37.0); MEAN CORPUSCULAR VOLUME 81 fL (80-100); MONOCYTES # (AUTO) 0.7 K/uL (0.1-1.0); MONOCYTES % (AUTO) 8.4 % (2.0-9.0); NEUTROPHILS # (AUTO) 5.1 K/uL (1.8-7.7); NEUTROPHILS % (AUTO) 59.5 % (40.0-70.0); PLATELET COUNT (AUTO) 265 K/uL (150-450); RED BLOOD CELL COUNT(AUTO) 5.42 MIL/uL (4.50-5.90); RED CELL DISTRIBUTION WIDTH 13.3 % (11.5-14.5)
[2018-08-13 13:11] LABS: ANION GAP 10 mmol/L (8-16); CALCIUM, TOTAL 9.2 mg/dL (8.8-10.5); CARBON DIOXIDE 30 mmol/L (22-29); CHLORIDE 100 mmol/L (98-107); CREATININE 0.89 mg/dL (0.60-1.30); GLOMERULAR FILTR. RATE CALC > 60 mL/min (>60); GLUCOSE,RANDOM 92 mg/dL (70-110); POTASSIUM 4.7 mmol/L (3.5-5.1); SODIUM SERUM 140 mmol/L (136-145); UREA NITROGEN, BLOOD 21 mg/dL (7-18)
[2018-08-13 13:17] LABS: ALANINE AMINOTRANSFERASE 71 U/L (12-78); ALKALINE PHOSPHATASE 28 U/L (46-116); ASPARTATE AMINOTRANSFERASE 90 U/L (15-37); BILIRUBIN,TOTAL 0.8 mg/dL (0.1-1.0); TOTAL PROTEIN, SERUM 8.1 g/dL (6.4-8.2)
[2018-08-13 15:19] LABS: AMPHET/METH SCREEN,URINE POSITIVE (NEGATIVE); BARBITURATE SCREEN, URINE NEGATIVE (NEGATIVE); BENZODIAZEPINES SCREEN,URINE NEGATIVE (NEGATIVE); CANNABINOID SCREEN,URINE NEGATIVE (NEGATIVE); COCAINE SCREEN,URINE NEGATIVE (NEGATIVE); METHADONE SCREEN, URINE NEGATIVE (NEGATIVE); OPIATE SCREEN,URINE NEGATIVE (NEGATIVE)
[2018-08-13 15:25] LABS: PHENCYCLIDINE SCREEN,URINE NEGATIVE (NEGATIVE)
[2018-08-13] MEDS ORDERED: HALOPERIDOL 5 MG TABLET PO PRN (17:00)
[2018-08-13] MEDS ORDERED: ZOLPIDEM TARTRATE 10 MG TABLET PO PRN (17:00)
[2018-08-13] MEDS ORDERED: ACETAMINOPHEN 325 MG TABLET PO PRN ×2 (17:15→21:30)
[2018-08-13] MEDS ORDERED: IBUPROFEN 400 MG TABLET PO PRN ×2 (17:15→21:30)
[2018-08-13 19:38] VITALS: BP 137/75
[2018-08-13] MEDS ORDERED: GuaiFENesin/D-METHORPHAN [SUGAR-FREE] 200-20MG/10 ML SYRUP UDCUP PO PRN (21:30)
[2018-08-13] MEDS ORDERED: MAGNESIUM HYDROXIDE SUSPENSION 30 ML UDCUP PO PRN (21:30)
[2018-08-13] MEDS ORDERED: DOCUSATE SODIUM 100 MG CAPSULE PO PRN (21:30)
[2018-08-13] MEDS ORDERED: PETROLATUM,WHITE 71 GM JELLY TP PRN (21:30)
[2018-08-13] MEDS ORDERED: NICOTINE 14 MG/24 HOUR PATCH TD PRN (21:30)
[2018-08-13] MEDS ORDERED: MAG HYDROX/AL HYDROX/SIMETH ES 30 ML SUSPENSION UDCUP PO PRN (21:30)
[2018-08-13] MEDS ORDERED: CloNIDine HCL 0.1 MG TABLET PO PRN (21:30)
[2018-08-13] MEDS ORDERED: ONDANSETRON HCL 4 MG TABLET PO PRN (21:30)
[2018-08-13] MEDS ORDERED: ALBUTEROL SULFATE HFA 90 MCG/PUFF 8 GM INHALER IH PRN (21:30)
[2018-08-13] MEDS ORDERED: LOPERAMIDE HCL 2 MG CAPSULE PO PRN (21:30)
[2018-08-13] MEDS ORDERED: PNEUMOCOCCAL VACCINE POLYVALENT 0.5 ML VIAL [PPSV23] IM ONE (23:15)
[2018-08-14 04:08] VITALS: BP 126/81
[2018-08-14 08:07] LABS: EOSINOPHILS % (AUTO) 4.6 % (1.0-6.0); HEMATOCRIT 37.5 % (41-53); HEMOGLOBIN 12.4 g/dL (13.5-17.5); LYMPHOCYTES # (AUTO) 2.4 K/uL (1.0-4.8); MEAN CORPUSCULAR HEMOGLOBIN 26.8 pg (26.0-34.0); MEAN CORPUSCULAR HGB CONC 33.1 G/dL (31.0-37.0); MEAN CORPUSCULAR VOLUME 81 fL (80-100); MONOCYTES # (AUTO) 0.5 K/uL (0.1-1.0); NEUTROPHILS % (AUTO) 39.4 % (40.0-70.0); PLATELET COUNT (AUTO) 225 K/uL (150-450); RED BLOOD CELL COUNT(AUTO) 4.63 MIL/uL (4.50-5.90); RED CELL DISTRIBUTION WIDTH 13.2 % (11.5-14.5)
[2018-08-14 08:08] LABS: HEMOGLOBIN A1C 5.5 % (4.5-6.2)
[2018-08-14 08:25] LABS: ALANINE AMINOTRANSFERASE 60 U/L (12-78); ALBUMIN 3.1 g/dL (3.4-5.0); ALKALINE PHOSPHATASE 24 U/L (46-116); ANION GAP 5 mmol/L (8-16); ASPARTATE AMINOTRANSFERASE 54 U/L (15-37); BILIRUBIN,TOTAL 0.4 mg/dL (0.1-1.0); CALCIUM, TOTAL 8.3 mg/dL (8.8-10.5); CARBON DIOXIDE 30 mmol/L (22-29); CHLORIDE 105 mmol/L (98-107); CHOL/HDL RATIO 2.7 (4.2-7.3); CHOLESTEROL 166 mg/dL (131-200); CREATININE 0.83 mg/dL (0.60-1.30); GLOMERULAR FILTR. RATE CALC > 60 mL/min (>60); GLUCOSE,RANDOM 85 mg/dL (70-110); HDL CHOLESTEROL 62 mg/dL (40-60); LDL CHOL (CALC.) 94 mg/dL (0-130); SODIUM SERUM 140 mmol/L (136-145); THYROID STIMULATING HORMONE 0.75 uIU/mL (0.36-3.74); TOTAL PROTEIN, SERUM 6.6 g/dL (6.4-8.2); TRIGLYCERIDES 49 mg/dL (15-150); UREA NITROGEN, BLOOD 19 mg/dL (7-18)
[2018-08-14 09:00] VITALS: BP 142/79
[2018-08-14] MEDS ORDERED: PERMETHRIN 5% 60 GM CREAM TP ONE (09:00)
[2018-08-14] MEDS: AmLODIPine BESYLATE 5 MG TABLET PO SCH (09:20)
[2018-08-14 16:05] VITALS: BP 114/68
[2018-08-14] MEDS: QUEtiapine FUMARATE 300 MG TABLET PO SCH (20:29)
[2018-08-15 04:50] VITALS: BP 120/81
[2018-08-15 08:11] VITALS: BP 120/63
[2018-08-15] MEDS: FLUoxetine HCL 20 MG CAPSULE PO SCH (10:41)
[2018-08-15] MEDS: AmLODIPine BESYLATE 5 MG TABLET PO SCH (10:41)
[2018-08-15] MEDS: BuPROPion HCL XL 150 MG ER TABLET PO SCH (10:41)
[2018-08-15] MEDS: QUEtiapine FUMARATE 200 MG TABLET PO SCH (10:41)
[2018-08-15 16:08] VITALS: BP 109/59
[2018-08-15] MEDS: QUEtiapine FUMARATE 300 MG TABLET PO SCH (20:43)
[2018-08-16 03:31] VITALS: BP 116/64
[2018-08-16 08:24] VITALS: BP 114/62
[2018-08-16] MEDS: AmLODIPine BESYLATE 5 MG TABLET PO SCH (09:58)
[2018-08-16] MEDS: BuPROPion HCL XL 150 MG ER TABLET PO SCH (09:58)
[2018-08-16] MEDS: FLUoxetine HCL 20 MG CAPSULE PO SCH (09:59)
[2018-08-16] MEDS: QUEtiapine FUMARATE 200 MG TABLET PO SCH (09:59)
[2018-08-16 16:10] VITALS: BP 120/75
[2018-08-16] MEDS: LORazepam 2 MG TABLET PO PRN (16:33)
[2018-08-16] MEDS: QUEtiapine FUMARATE 300 MG TABLET PO SCH (20:29)
[2018-08-17 02:57] VITALS: BP 117/74
[2018-08-17] MEDS: FLUoxetine HCL 20 MG CAPSULE PO SCH ×2 (08:06→09:00)
[2018-08-17] MEDS: QUEtiapine FUMARATE 300 MG TABLET PO SCH ×3 (08:20→20:08)
[2018-08-17] MEDS: AmLODIPine BESYLATE 5 MG TABLET PO SCH (09:00)
[2018-08-17] MEDS: BuPROPion HCL XL 150 MG ER TABLET PO SCH (09:00)
[2018-08-17] MEDS ORDERED: QUEtiapine FUMARATE 300 MG TABLET PO SCH (09:00)
[2018-08-17] MEDS: LORazepam 2 MG TABLET PO PRN ×2 (12:14→16:42)
[2018-08-17 16:05] VITALS: BP 126/77
[2018-08-18 05:20] VITALS: BP 121/72
[2018-08-18] MEDS: AmLODIPine BESYLATE 5 MG TABLET PO SCH (08:31)
[2018-08-18] MEDS: QUEtiapine FUMARATE 300 MG TABLET PO SCH ×2 (08:31→20:24)
[2018-08-18] MEDS: BuPROPion HCL XL 150 MG ER TABLET PO SCH (08:31)
[2018-08-18] MEDS: FLUoxetine HCL 20 MG CAPSULE PO SCH (08:31)
[2018-08-18 16:14] VITALS: BP 144/69
[2018-08-19 07:25] VITALS: BP 130/81
[2018-08-19] MEDS: QUEtiapine FUMARATE 300 MG TABLET PO SCH ×3 (08:07→20:54)
[2018-08-19] MEDS: BuPROPion HCL XL 150 MG ER TABLET PO SCH ×2 (08:08→09:00)
[2018-08-19] MEDS: FLUoxetine HCL 20 MG CAPSULE PO SCH ×2 (08:08→09:00)
[2018-08-19] MEDS: AmLODIPine BESYLATE 5 MG TABLET PO SCH ×2 (08:40→09:00)
[2018-08-19 09:02] VITALS: BP 121/70
[2018-08-19 17:43] VITALS: BP 127/75
[2018-08-20 07:02] VITALS: BP 106/66
[2018-08-20] MEDS: AmLODIPine BESYLATE 5 MG TABLET PO SCH (08:13)
[2018-08-20] MEDS: BuPROPion HCL XL 150 MG ER TABLET PO SCH (08:14)
[2018-08-20] MEDS: FLUoxetine HCL 20 MG CAPSULE PO SCH (08:14)
[2018-08-20] MEDS: QUEtiapine FUMARATE 300 MG TABLET PO SCH ×3 (08:14→21:00)
[2018-08-20 16:05] VITALS: BP 109/67
[2018-08-20] MEDS ORDERED: FLUO-191 PO (20:42)
[2018-08-20] MEDS ORDERED: QUET300T2 PO (20:42)
[2018-08-21 00:56] VITALS: BP 112/70
[2018-08-21] MEDS: BuPROPion HCL XL 150 MG ER TABLET PO SCH (08:27)
[2018-08-21] MEDS: FLUoxetine HCL 20 MG CAPSULE PO SCH (08:28)
[2018-08-21] MEDS: QUEtiapine FUMARATE 300 MG TABLET PO SCH (08:28)
[2018-08-21] MEDS: AmLODIPine BESYLATE 5 MG TABLET PO SCH (08:28)
[2018-08-21 09:07] VITALS: BP 115/69
== END 2018-08-21 07:55 | disposition home or self-care (01) | DRG 750 ==
LOC: EMS 11:54 → B2S 17:38
PROVIDERS: ADMIT Psychiatry & Neurology Psychiatry; ATTEND Psychiatry & Neurology Psychiatry
DX: F25.1 Schizoaffective disorder, depressive type (principal); R45.851 Suicidal ideations; Z59.0 Homelessness; D64.9 Anemia, unspecified; F15.10 Other stimulant abuse, uncomplicated; F17.210 Nicotine dependence, cigarettes, uncomplicated; F32.9 Major depressive disorder, single episode, unspecified; I10 Essential (primary) hypertension; Z79.899 Other long term (current) drug therapy; Z91.19 Patient's noncompliance with other medical treatment and regimen; Z91.5 Personal history of self-harm; Z71.6 Tobacco abuse counseling
CPT/HCPCS: 83036; 84443; 87081; G0480

== ENCOUNTER 2018-10-07 22:59 | Inpatient (IN) | payer MEDICAID ==
[~2018-10-07] VITALS: Ht 180.3 cm; Wt 131.1 kg
[~2018-10-07 22:59] MED LIST changes: -QUET200T PO
[2018-10-07 23:28] LABS: BASOPHILS % (AUTO) 0.9 % (0.0-2.0); EOSINOPHILS % (AUTO) 3.7 % (1.0-6.0); HEMATOCRIT 40.8 % (41-53); HEMOGLOBIN 13.5 g/dL (13.5-17.5); LYMPHOCYTES # (AUTO) 3.3 K/uL (1.0-4.8); LYMPHOCYTES % (AUTO) 34.6 % (22.0-44.0); MEAN CORPUSCULAR HEMOGLOBIN 26.8 pg (26.0-34.0); MEAN CORPUSCULAR HGB CONC 33.2 G/dL (31.0-37.0); MEAN CORPUSCULAR VOLUME 81 fL (80-100); MONOCYTES # (AUTO) 0.7 K/uL (0.1-1.0); MONOCYTES % (AUTO) 7.9 % (2.0-9.0); NEUTROPHILS % (AUTO) 52.9 % (40.0-70.0); PLATELET COUNT (AUTO) 222 K/uL (150-450); RED BLOOD CELL COUNT(AUTO) 5.05 MIL/uL (4.50-5.90); RED CELL DISTRIBUTION WIDTH 13.1 % (11.5-14.5)
[2018-10-07 23:37] LABS: ANION GAP 8 mmol/L (8-16); CALCIUM, TOTAL 8.5 mg/dL (8.8-10.5); CARBON DIOXIDE 27 mmol/L (22-29); CHLORIDE 102 mmol/L (98-107); CREATININE 1.03 mg/dL (0.60-1.30); GLOMERULAR FILTR. RATE CALC > 60 mL/min (>60); GLUCOSE,RANDOM 91 mg/dL (70-110); POTASSIUM 3.6 mmol/L (3.5-5.1); SODIUM SERUM 137 mmol/L (136-145); UREA NITROGEN, BLOOD 17 mg/dL (7-18)
[2018-10-07 23:43] LABS: ALANINE AMINOTRANSFERASE 30 U/L (12-78); ALBUMIN 3.9 g/dL (3.4-5.0); ALKALINE PHOSPHATASE 30 U/L (46-116); ASPARTATE AMINOTRANSFERASE 45 U/L (15-37); BILIRUBIN,TOTAL 0.9 mg/dL (0.1-1.0); TOTAL PROTEIN, SERUM 7.5 g/dL (6.4-8.2)
[2018-10-08] MEDS ORDERED: QUEtiapine FUMARATE 100 MG TABLET PO ONE (01:00)
[2018-10-08] MEDS ORDERED: LORazepam 1 MG TABLET PO ONE (01:00)
[2018-10-08] MEDS ORDERED: OLANZapine 5 MG RAPDIS TABLET PO PRN (01:15)
[2018-10-08] MEDS ORDERED: ZOLPIDEM TARTRATE 10 MG TABLET PO PRN (01:15)
[2018-10-08] MEDS ORDERED: LORazepam 2 MG TABLET PO PRN (01:15)
[2018-10-08 04:20] VITALS: BP 120/66
[2018-10-08] MEDS ORDERED: AmLODIPine BESYLATE 5 MG TABLET PO SCH (09:00)
[2018-10-08] MEDS: HYDROCORTISONE 2.5% 30 GM OINTMENT TP SCH ×2 (10:18→16:34)
[2018-10-08 11:19] LABS: GLUCOMETER DEV NAME(LOC) BV2S.; GLUCOSE,POINT OF CARE 110 MG/DL (70-110)
[2018-10-08] MEDS ORDERED: HydrOXYzine PAMOATE 50 MG CAPSULE PO PRN (12:15)
[2018-10-08] MEDS ORDERED: ACETAMINOPHEN 325 MG TABLET PO PRN (12:15)
[2018-10-08] MEDS ORDERED: MAG HYDROX/AL HYDROX/SIMETH ES 30 ML SUSPENSION UDCUP PO PRN (12:15)
[2018-10-08] MEDS ORDERED: LOPERAMIDE HCL 2 MG CAPSULE PO PRN (12:15)
[2018-10-08] MEDS ORDERED: GuaiFENesin/D-METHORPHAN [SUGAR-FREE] 200-20MG/10 ML SYRUP UDCUP PO PRN (12:15)
[2018-10-08] MEDS ORDERED: TUBERCULIN, PURIFIED PROTEIN DERIVATIVE 5 TU/0.1 ML SYRINGE ID ONE (12:15)
[2018-10-08] MEDS ORDERED: PROMETHAZINE HCL 25 MG TABLET PO PRN (12:15)
[2018-10-08] MEDS ORDERED: MAGNESIUM HYDROXIDE SUSPENSION 30 ML UDCUP PO PRN (12:15)
[2018-10-08] MEDS ORDERED: PALIPERIDONE PALMITATE 234 MG/1.5 ML SYRINGE IM ONE (15:30)
[2018-10-08] MEDS ORDERED: PALIPERIDONE 1.5 MG ER TABLET PO PRN (15:30)
[2018-10-08 16:07] VITALS: BP 122/83
[2018-10-08] MEDS: THIAMINE HCL 100 MG TABLET PO SCH (16:34)
[2018-10-08] MEDS ORDERED: PALIPERIDONE 3 MG ER TABLET PO SCH (21:00)
[2018-10-09 00:01] VITALS: BP 115/84
[2018-10-09 08:20] VITALS: BP 114/71
[2018-10-09] MEDS: HYDROCORTISONE 2.5% 30 GM OINTMENT TP SCH ×2 (08:52→17:17)
[2018-10-09] MEDS: MULTIVITAMINS WITH MINERALS, THERAPEUTIC TABLET PO SCH (08:52)
[2018-10-09] MEDS: AmLODIPine BESYLATE 2.5 MG TABLET PO SCH (08:52)
[2018-10-09] MEDS: THIAMINE HCL 100 MG TABLET PO SCH ×2 (08:52→16:20)
[2018-10-09] MEDS: FOLIC ACID 1 MG TABLET PO SCH (08:52)
[2018-10-09] MEDS: NALTREXONE HCL 50 MG TABLET PO SCH (08:52)
[2018-10-09] MEDS ORDERED: FLUoxetine HCL 20 MG CAPSULE PO SCH (09:00)
[2018-10-09] MEDS ORDERED: OLANZapine 10 MG RAPDIS TABLET PO SCH (09:00)
[2018-10-09 16:34] VITALS: BP 120/82
[2018-10-10 05:10] VITALS: BP 119/69
[2018-10-10 08:00] VITALS: BP 120/74
[2018-10-10] MEDS: MULTIVITAMINS WITH MINERALS, THERAPEUTIC TABLET PO SCH (08:26)
[2018-10-10] MEDS: FLUoxetine HCL 20 MG CAPSULE PO SCH (08:26)
[2018-10-10] MEDS: FOLIC ACID 1 MG TABLET PO SCH (08:26)
[2018-10-10] MEDS: THIAMINE HCL 100 MG TABLET PO SCH ×2 (08:26→17:18)
[2018-10-10] MEDS: AmLODIPine BESYLATE 2.5 MG TABLET PO SCH (08:27)
[2018-10-10] MEDS: HYDROCORTISONE 2.5% 30 GM OINTMENT TP SCH ×2 (09:34→17:18)
[2018-10-10] MEDS: NALTREXONE HCL 50 MG TABLET PO SCH (09:34)
[2018-10-10 16:08] VITALS: BP 118/82
[2018-10-11 00:24] VITALS: BP 112/68
[2018-10-11] MEDS ORDERED: PNEUMOCOCCAL VACCINE POLYVALENT 0.5 ML VIAL [PPSV23] IM ONE (03:15)
[2018-10-11 08:53] VITALS: BP 103/63
[2018-10-11] MEDS: FLUoxetine HCL 20 MG CAPSULE PO SCH (09:26)
[2018-10-11] MEDS: THIAMINE HCL 100 MG TABLET PO SCH ×2 (09:26→16:42)
[2018-10-11] MEDS: AmLODIPine BESYLATE 2.5 MG TABLET PO SCH (09:26)
[2018-10-11] MEDS: HYDROCORTISONE 2.5% 30 GM OINTMENT TP SCH ×2 (09:26→16:42)
[2018-10-11] MEDS: FOLIC ACID 1 MG TABLET PO SCH (09:26)
[2018-10-11] MEDS: MULTIVITAMINS WITH MINERALS, THERAPEUTIC TABLET PO SCH (09:26)
[2018-10-11] MEDS: NALTREXONE HCL 50 MG TABLET PO SCH (09:57)
[2018-10-11 16:21] VITALS: BP 120/61
[2018-10-12 05:50] VITALS: BP 114/68
[2018-10-12 08:00] VITALS: BP 123/68
[2018-10-12] MEDS ORDERED: PALIPERIDONE PALMITATE 156 MG/ML SYRINGE IM ONE (09:00)
[2018-10-12] MEDS: FLUoxetine HCL 20 MG CAPSULE PO SCH (09:26)
[2018-10-12] MEDS: MULTIVITAMINS WITH MINERALS, THERAPEUTIC TABLET PO SCH (09:26)
[2018-10-12] MEDS: THIAMINE HCL 100 MG TABLET PO SCH ×2 (09:26→16:15)
[2018-10-12] MEDS: FOLIC ACID 1 MG TABLET PO SCH (09:26)
[2018-10-12] MEDS: NALTREXONE HCL 50 MG TABLET PO SCH (09:26)
[2018-10-12] MEDS: AmLODIPine BESYLATE 2.5 MG TABLET PO SCH ×2 (09:27→09:28)
[2018-10-12] MEDS: HYDROCORTISONE 2.5% 30 GM OINTMENT TP SCH ×2 (09:28→17:07)
[2018-10-12 16:18] VITALS: BP 121/82
[2018-10-13 06:15] VITALS: BP 112/69
[2018-10-13 08:32] VITALS: BP 117/60
[2018-10-13] MEDS: AmLODIPine BESYLATE 2.5 MG TABLET PO SCH (08:40)
[2018-10-13] MEDS: MULTIVITAMINS WITH MINERALS, THERAPEUTIC TABLET PO SCH (08:40)
[2018-10-13] MEDS: FLUoxetine HCL 20 MG CAPSULE PO SCH (08:40)
[2018-10-13] MEDS: THIAMINE HCL 100 MG TABLET PO SCH ×2 (08:40→16:12)
[2018-10-13] MEDS: NALTREXONE HCL 50 MG TABLET PO SCH (08:40)
[2018-10-13] MEDS: FOLIC ACID 1 MG TABLET PO SCH (08:40)
[2018-10-13 16:05] VITALS: BP 121/68
[2018-10-14] MEDS: NALTREXONE HCL 50 MG TABLET PO SCH (08:38)
[2018-10-14] MEDS: MULTIVITAMINS WITH MINERALS, THERAPEUTIC TABLET PO SCH (08:38)
[2018-10-14] MEDS: AmLODIPine BESYLATE 2.5 MG TABLET PO SCH (08:38)
[2018-10-14] MEDS: THIAMINE HCL 100 MG TABLET PO SCH ×2 (08:38→17:16)
[2018-10-14] MEDS: FLUoxetine HCL 20 MG CAPSULE PO SCH (08:38)
[2018-10-14] MEDS: FOLIC ACID 1 MG TABLET PO SCH (08:38)
[2018-10-14 09:30] VITALS: BP 144/62
[2018-10-14 16:44] VITALS: BP 140/70
[2018-10-15 06:49] VITALS: BP 126/67
[2018-10-15 08:55] VITALS: BP 127/70
[2018-10-15] MEDS: FLUoxetine HCL 20 MG CAPSULE PO SCH (08:57)
[2018-10-15] MEDS: FOLIC ACID 1 MG TABLET PO SCH (08:57)
[2018-10-15] MEDS: AmLODIPine BESYLATE 2.5 MG TABLET PO SCH (08:57)
[2018-10-15] MEDS: THIAMINE HCL 100 MG TABLET PO SCH ×2 (08:57→16:57)
[2018-10-15] MEDS: MULTIVITAMINS WITH MINERALS, THERAPEUTIC TABLET PO SCH (08:57)
[2018-10-15] MEDS: NALTREXONE HCL 50 MG TABLET PO SCH (08:58)
[2018-10-15 09:00] LABS: CHOL/HDL RATIO 3.5 (4.2-7.3)
[2018-10-15 16:15] VITALS: BP 116/72
[2018-10-16 05:31] VITALS: BP 118/65
[2018-10-16 08:00] VITALS: BP 113/72
[2018-10-16] MEDS: THIAMINE HCL 100 MG TABLET PO SCH ×2 (08:56→16:25)
[2018-10-16] MEDS: AmLODIPine BESYLATE 2.5 MG TABLET PO SCH (08:56)
[2018-10-16] MEDS: MULTIVITAMINS WITH MINERALS, THERAPEUTIC TABLET PO SCH (08:56)
[2018-10-16] MEDS: FLUoxetine HCL 20 MG CAPSULE PO SCH (08:56)
[2018-10-16] MEDS: FOLIC ACID 1 MG TABLET PO SCH (08:56)
[2018-10-16] MEDS: NALTREXONE HCL 50 MG TABLET PO SCH (08:56)
[2018-10-16 16:01] VITALS: BP 114/66
[2018-10-17 06:21] VITALS: BP 113/70
[2018-10-17 08:12] VITALS: BP 120/69
[2018-10-17] MEDS: THIAMINE HCL 100 MG TABLET PO SCH ×2 (08:35→16:02)
[2018-10-17] MEDS: FOLIC ACID 1 MG TABLET PO SCH (08:35)
[2018-10-17] MEDS: MULTIVITAMINS WITH MINERALS, THERAPEUTIC TABLET PO SCH (08:35)
[2018-10-17] MEDS: NALTREXONE HCL 50 MG TABLET PO SCH (08:35)
[2018-10-17] MEDS: FLUoxetine HCL 20 MG CAPSULE PO SCH (08:35)
[2018-10-17] MEDS: AmLODIPine BESYLATE 2.5 MG TABLET PO SCH (09:44)
[2018-10-17 16:07] VITALS: BP 124/80
[2018-10-18 02:00] VITALS: BP 132/82
[2018-10-18 08:00] VITALS: BP 135/93
[2018-10-18] MEDS: MULTIVITAMINS WITH MINERALS, THERAPEUTIC TABLET PO SCH (08:25)
[2018-10-18] MEDS: FOLIC ACID 1 MG TABLET PO SCH (08:25)
[2018-10-18] MEDS: FLUoxetine HCL 20 MG CAPSULE PO SCH (08:26)
[2018-10-18] MEDS: NALTREXONE HCL 50 MG TABLET PO SCH (08:26)
[2018-10-18] MEDS: AmLODIPine BESYLATE 2.5 MG TABLET PO SCH (08:26)
[2018-10-18] MEDS: THIAMINE HCL 100 MG TABLET PO SCH (08:26)
[2018-10-18 17:00] VITALS: BP 119/72
[2018-10-19 07:24] VITALS: BP 114/72
[2018-10-19 08:11] VITALS: BP 149/81
[2018-10-19] MEDS: AmLODIPine BESYLATE 2.5 MG TABLET PO SCH (08:41)
[2018-10-19] MEDS: MULTIVITAMINS WITH MINERALS, THERAPEUTIC TABLET PO SCH (08:41)
[2018-10-19] MEDS: FLUoxetine HCL 20 MG CAPSULE PO SCH (08:41)
[2018-10-19] MEDS: NALTREXONE HCL 50 MG TABLET PO SCH (08:41)
[2018-10-19 16:23] VITALS: BP 106/54
[2018-10-20 04:09] VITALS: BP 110/67
[2018-10-20 08:08] VITALS: BP 122/63
[2018-10-20] MEDS: FLUoxetine HCL 20 MG CAPSULE PO SCH (09:18)
[2018-10-20] MEDS: NALTREXONE HCL 50 MG TABLET PO SCH (09:18)
[2018-10-20] MEDS: MULTIVITAMINS WITH MINERALS, THERAPEUTIC TABLET PO SCH (09:18)
[2018-10-20] MEDS: AmLODIPine BESYLATE 2.5 MG TABLET PO SCH (09:22)
[2018-10-20 17:14] VITALS: BP 127/75
[2018-10-21 04:24] VITALS: BP 122/70
[2018-10-21 08:36] VITALS: BP 140/68
[2018-10-21] MEDS: FLUoxetine HCL 20 MG CAPSULE PO SCH (08:40)
[2018-10-21] MEDS: NALTREXONE HCL 50 MG TABLET PO SCH (08:40)
[2018-10-21] MEDS: AmLODIPine BESYLATE 2.5 MG TABLET PO SCH (08:40)
[2018-10-21] MEDS: MULTIVITAMINS WITH MINERALS, THERAPEUTIC TABLET PO SCH (08:40)
[2018-10-21 16:00] VITALS: BP 134/86
[2018-10-22 04:26] VITALS: BP 128/71
[2018-10-22 08:14] VITALS: BP 142/81
[2018-10-22] MEDS: NALTREXONE HCL 50 MG TABLET PO SCH (08:54)
[2018-10-22] MEDS: FLUoxetine HCL 20 MG CAPSULE PO SCH (08:54)
[2018-10-22] MEDS: AmLODIPine BESYLATE 2.5 MG TABLET PO SCH (08:54)
[2018-10-22] MEDS: MULTIVITAMINS WITH MINERALS, THERAPEUTIC TABLET PO SCH (08:54)
[2018-10-22 16:16] VITALS: BP 107/62
[2018-10-23 06:58] VITALS: BP 122/63
[2018-10-23 07:56] VITALS: BP 139/81
[2018-10-23] MEDS: AmLODIPine BESYLATE 2.5 MG TABLET PO SCH (08:33)
[2018-10-23] MEDS: MULTIVITAMINS WITH MINERALS, THERAPEUTIC TABLET PO SCH (08:34)
[2018-10-23] MEDS: NALTREXONE HCL 50 MG TABLET PO SCH (08:34)
[2018-10-23] MEDS: FLUoxetine HCL 20 MG CAPSULE PO SCH (08:34)
[2018-10-23] MEDS ORDERED: NALT50TA PO (11:25)
[2018-10-23] MEDS ORDERED: FLUO-191 PO ×2 (11:25→13:40)
[2018-10-23] MEDS ORDERED: PALI117D IM ×2 (11:25→13:41)
[2018-10-23] MEDS ORDERED: NALT50TA6 PO (13:40)
== END 2018-10-23 15:35 | disposition home or self-care (01) | DRG 750 ==
LOC: EMS 23:00 → B2S 10-08 01:51 → B3A 10-18 19:41
PROVIDERS: ADMIT Psychiatry & Neurology Psychiatry; ATTEND Psychiatry & Neurology Psychiatry
DX: F25.9 Schizoaffective disorder, unspecified (principal); Z68.41 Body mass index [BMI] 40.0-44.9, adult; R45.851 Suicidal ideations; D64.9 Anemia, unspecified; R41.843 Psychomotor deficit; R79.89 Other specified abnormal findings of blood chemistry; E55.9 Vitamin D deficiency, unspecified; E66.9 Obesity, unspecified; F12.10 Cannabis abuse, uncomplicated; I10 Essential (primary) hypertension; Z79.899 Other long term (current) drug therapy; Z87.891 Personal history of nicotine dependence; Z91.14 Patient's other noncompliance with medication regimen; Z91.19 Patient's noncompliance with other medical treatment and regimen; Z59.0 Homelessness
CPT/HCPCS: G0480

== ENCOUNTER 2018-12-31 12:43 | Emergency (ER) | payer MEDICAID ==
[~2018-12-31] VITALS: Ht 180.3 cm; Wt 120.5 kg
[~2018-12-31 12:43] MED LIST changes: -AMLO-511 PO; +AMLO5TAB9 PO; -BUPR-93 PO; +NALT50TA PO; +NALT50TA6 PO; +PALI117D IM; -QUET300T2 PO
[2018-12-31] MEDS ORDERED: QUET100T PO (13:29)
[2018-12-31] MEDS ORDERED: IBUPROFEN 800 MG TABLET PO ONE (15:15)
[2018-12-31 17:08] VITALS: BP 111/66
== END 2018-12-31 17:20 | disposition home or self-care (01) ==
LOC: EMS 12:45
DX: S62.337A Displaced fracture of neck of fifth metacarpal bone, left hand, initial encounter for closed fracture (principal); F20.9 Schizophrenia, unspecified; F32.9 Major depressive disorder, single episode, unspecified; F17.210 Nicotine dependence, cigarettes, uncomplicated; F19.90 Other psychoactive substance use, unspecified, uncomplicated; Y04.0XXA Assault by unarmed brawl or fight, initial encounter; Y93.89 Activity, other specified; Y92.89 Other specified places as the place of occurrence of the external cause; Y99.8 Other external cause status

== ENCOUNTER 2019-02-22 03:21 | Emergency (ER) | payer MEDICAID ==
[~2019-02-22] VITALS: Ht 175.3 cm; Wt 104.5 kg
[~2019-02-22 03:21] MED LIST changes: -AMLO5TAB9 PO; -FLUO-191 PO; -NALT50TA PO; -NALT50TA6 PO; -PALI117D IM; +QUET100T PO
[2019-02-22 04:43] LABS: BASOPHILS % (AUTO) 0.8 % (0.0-2.0); EOSINOPHILS % (AUTO) 2.3 % (1.0-6.0); HEMATOCRIT 39.3 % (41-53); HEMOGLOBIN 12.5 g/dL (13.5-17.5); LYMPHOCYTES # (AUTO) 1.4 K/uL (1.0-4.8); LYMPHOCYTES % (AUTO) 13.7 % (22.0-44.0); MEAN CORPUSCULAR HEMOGLOBIN 26.5 pg (26.0-34.0); MEAN CORPUSCULAR HGB CONC 31.8 G/dL (31.0-37.0); MEAN CORPUSCULAR VOLUME 84 fL (80-100); MONOCYTES # (AUTO) 0.7 K/uL (0.1-1.0); MONOCYTES % (AUTO) 6.9 % (2.0-9.0); NEUTROPHILS # (AUTO) 7.8 K/uL (1.8-7.7); NEUTROPHILS % (AUTO) 76.3 % (40.0-70.0); PLATELET COUNT (AUTO) 214 K/uL (150-450); RED BLOOD CELL COUNT(AUTO) 4.71 MIL/uL (4.50-5.90); RED CELL DISTRIBUTION WIDTH 13.2 % (11.5-14.5)
[2019-02-22 04:54] LABS: ANION GAP 11 mmol/L (8-16); CALCIUM, TOTAL 9.1 mg/dL (8.8-10.5); CARBON DIOXIDE 25 mmol/L (22-29); CHLORIDE 106 mmol/L (98-107); CREATININE 1.21 mg/dL (0.60-1.30); GLOMERULAR FILTR. RATE CALC > 60 mL/min (>60); GLUCOSE,RANDOM 100 mg/dL (70-110); POTASSIUM 3.7 mmol/L (3.5-5.1); SODIUM SERUM 142 mmol/L (136-145); UREA NITROGEN, BLOOD 19 mg/dL (7-18)
[2019-02-22 05:00] LABS: ALANINE AMINOTRANSFERASE 29 U/L (12-78); ALBUMIN 3.9 g/dL (3.4-5.0); ALKALINE PHOSPHATASE 30 U/L (46-116); ASPARTATE AMINOTRANSFERASE 23 U/L (15-37); BILIRUBIN,TOTAL 0.8 mg/dL (0.1-1.0); TOTAL PROTEIN, SERUM 7.4 g/dL (6.4-8.2)
[2019-02-22] MEDS ORDERED: ACETAMINOPHEN 500 MG TABLET PO ONE (05:45)
[2019-02-22 05:48] LABS: AMPHET/METH SCREEN,URINE POSITIVE (NEGATIVE); BARBITURATE SCREEN, URINE NEGATIVE (NEGATIVE); BENZODIAZEPINES SCREEN,URINE NEGATIVE (NEGATIVE); CANNABINOID SCREEN,URINE POSITIVE (NEGATIVE); COCAINE SCREEN,URINE NEGATIVE (NEGATIVE); METHADONE SCREEN, URINE NEGATIVE (NEGATIVE); OPIATE SCREEN,URINE NEGATIVE (NEGATIVE); PHENCYCLIDINE SCREEN,URINE NEGATIVE (NEGATIVE)
[2019-02-22 06:05] VITALS: BP 119/71
== END 2019-02-22 06:30 | disposition home or self-care (01) ==
LOC: EMS 03:23
DX: S20.212A Contusion of left front wall of thorax, initial encounter (principal); S20.211A Contusion of right front wall of thorax, initial encounter; S00.83XA Contusion of other part of head, initial encounter; F25.9 Schizoaffective disorder, unspecified; F15.10 Other stimulant abuse, uncomplicated; F32.9 Major depressive disorder, single episode, unspecified; F17.210 Nicotine dependence, cigarettes, uncomplicated; Z79.899 Other long term (current) drug therapy; Y04.0XXA Assault by unarmed brawl or fight, initial encounter; Y93.89 Activity, other specified; Y92.89 Other specified places as the place of occurrence of the external cause; Y99.8 Other external cause status
CPT/HCPCS: 36415; 70450; 71111; 80053; 80307; 85025; 99284; 99406; G0480

== ENCOUNTER 2019-04-29 14:46 | Inpatient (IN) | payer MEDICAID ==
[~2019-04-29] VITALS: Ht 180.3 cm; Wt 122.5 kg
[2019-04-29 16:54] LABS: BASOPHILS % (AUTO) 1.3 % (0.0-2.0); EOSINOPHILS % (AUTO) 2.7 % (1.0-6.0); HEMATOCRIT 43.5 % (41-53); HEMOGLOBIN 14.1 g/dL (13.5-17.5); LYMPHOCYTES # (AUTO) 2.6 K/uL (1.0-4.8); LYMPHOCYTES % (AUTO) 34.3 % (22.0-44.0); MEAN CORPUSCULAR HGB CONC 32.4 G/dL (31.0-37.0); MEAN CORPUSCULAR VOLUME 83 fL (80-100); MONOCYTES # (AUTO) 0.5 K/uL (0.1-1.0); MONOCYTES % (AUTO) 7.3 % (2.0-9.0); NEUTROPHILS # (AUTO) 4.1 K/uL (1.8-7.7); NEUTROPHILS % (AUTO) 54.4 % (40.0-70.0); PLATELET COUNT (AUTO) 233 K/uL (150-450); RED BLOOD CELL COUNT(AUTO) 5.23 MIL/uL (4.50-5.90); RED CELL DISTRIBUTION WIDTH 13.6 % (11.5-14.5)
[2019-04-29 17:02] LABS: ANION GAP 12 mmol/L (8-16); CALCIUM, TOTAL 8.9 mg/dL (8.8-10.5); CARBON DIOXIDE 27 mmol/L (22-29); CHLORIDE 101 mmol/L (98-107); CREATININE 0.95 mg/dL (0.60-1.30); GLOMERULAR FILTR. RATE CALC > 60 mL/min (>60); GLUCOSE,RANDOM 79 mg/dL (70-110); SODIUM SERUM 140 mmol/L (136-145); UREA NITROGEN, BLOOD 17 mg/dL (7-18)
[2019-04-29 17:09] LABS: ALANINE AMINOTRANSFERASE 27 U/L (12-78); ALBUMIN 4.3 g/dL (3.4-5.0); ALKALINE PHOSPHATASE 31 U/L (46-116); ASPARTATE AMINOTRANSFERASE 15 U/L (15-37); BILIRUBIN,TOTAL 0.8 mg/dL (0.1-1.0)
[2019-04-29 17:58] LABS: AMPHET/METH SCREEN,URINE POSITIVE (NEGATIVE); BARBITURATE SCREEN, URINE NEGATIVE (NEGATIVE); BENZODIAZEPINES SCREEN,URINE NEGATIVE (NEGATIVE); CANNABINOID SCREEN,URINE NEGATIVE (NEGATIVE); COCAINE SCREEN,URINE NEGATIVE (NEGATIVE); METHADONE SCREEN, URINE NEGATIVE (NEGATIVE); OPIATE SCREEN,URINE NEGATIVE (NEGATIVE)
[2019-04-29 18:22] LABS: PHENCYCLIDINE SCREEN,URINE NEGATIVE (NEGATIVE)
[2019-04-29] MEDS ORDERED: ZOLPIDEM TARTRATE 10 MG TABLET PO PRN (18:30)
[2019-04-30 00:02] VITALS: BP 114/72
[2019-04-30 08:13] VITALS: BP 107/79
[2019-04-30 08:54] LABS: CHOL/HDL RATIO 2.5 (4.2-7.3); FREE T4 (FREE THYROXINE) 0.99 ng/dL (0.76-1.46); THYROID STIMULATING HORMONE 0.57 uIU/mL (0.36-3.74)
[2019-04-30] MEDS ORDERED: CloNIDine HCL 0.1 MG TABLET PO PRN (13:45)
[2019-04-30] MEDS ORDERED: MAGNESIUM HYDROXIDE SUSPENSION 30 ML UDCUP PO PRN (13:45)
[2019-04-30] MEDS ORDERED: NICOTINE 14 MG/24 HOUR PATCH TD PRN (13:45)
[2019-04-30] MEDS ORDERED: LOPERAMIDE HCL 2 MG CAPSULE PO PRN (13:45)
[2019-04-30] MEDS ORDERED: MAG HYDROX/AL HYDROX/SIMETH ES 30 ML SUSPENSION UDCUP PO PRN (13:45)
[2019-04-30] MEDS ORDERED: DOCUSATE SODIUM 100 MG CAPSULE PO PRN (13:45)
[2019-04-30] MEDS ORDERED: ACETAMINOPHEN 325 MG TABLET PO PRN (13:45)
[2019-04-30] MEDS ORDERED: ALBUTEROL SULFATE HFA 90 MCG/PUFF 8 GM INHALER IH PRN (13:45)
[2019-04-30] MEDS ORDERED: IBUPROFEN 400 MG TABLET PO PRN (13:45)
[2019-04-30] MEDS ORDERED: PETROLATUM,WHITE 28 GM JELLY TP PRN (13:45)
[2019-04-30] MEDS ORDERED: GuaiFENesin/D-METHORPHAN [SUGAR-FREE] 200-20MG/10 ML SYRUP UDCUP PO PRN (13:45)
[2019-04-30] MEDS ORDERED: ONDANSETRON HCL 4 MG TABLET PO PRN (13:45)
[2019-04-30] MEDS: RisperiDONE 2 MG TABLET PO SCH ×2 (15:09→20:43)
[2019-04-30 16:00] VITALS: BP 117/66
[2019-04-30] MEDS: HALOPERIDOL 5 MG TABLET PO PRN (16:28)
[2019-04-30] MEDS: LORazepam 2 MG TABLET PO PRN (16:28)
[2019-05-01 06:13] VITALS: BP 110/71
[2019-05-01 08:36] VITALS: BP 108/76
[2019-05-01] MEDS: RisperiDONE 2 MG TABLET PO SCH ×2 (08:42→20:44)
[2019-05-01] MEDS: FLUoxetine HCL 20 MG CAPSULE PO SCH (08:42)
[2019-05-01 16:09] VITALS: BP 126/62
[2019-05-01] MEDS: LORazepam 2 MG TABLET PO PRN (16:38)
[2019-05-01] MEDS: HALOPERIDOL 5 MG TABLET PO PRN (16:38)
[2019-05-02] VITALS: BP 110/68
[2019-05-02] MEDS: FLUoxetine HCL 20 MG CAPSULE PO SCH (08:52)
[2019-05-02] MEDS: RisperiDONE 2 MG TABLET PO SCH (08:52)
[2019-05-02] MEDS: RisperiDONE 3 MG TABLET PO SCH ×2 (09:00→20:17)
[2019-05-02] MEDS ORDERED: RisperiDONE 1 MG TABLET PO ONE (10:45)
[2019-05-02] MEDS ORDERED: DiphenhydrAMINE HCL 50 MG/ML VIAL ONE (14:46)
[2019-05-02] MEDS ORDERED: DiphenhydrAMINE HCL 50 MG/ML VIAL IM ONE (15:00)
[2019-05-02 16:02] VITALS: BP 121/68
[2019-05-02] MEDS: BENZTROPINE MESYLATE 1 MG TABLET PO SCH (20:17)
[2019-05-03 00:57] VITALS: BP 129/77
[2019-05-03 08:12] VITALS: BP 118/81
[2019-05-03] MEDS: RisperiDONE 3 MG TABLET PO SCH (08:13)
[2019-05-03] MEDS: BENZTROPINE MESYLATE 1 MG TABLET PO SCH (08:13)
[2019-05-03] MEDS: FLUoxetine HCL 20 MG CAPSULE PO SCH (08:13)
[2019-05-03] MEDS ORDERED: BENZ1TAB10 PO (13:15)
[2019-05-03] MEDS ORDERED: RISP3 PO (13:15)
[2019-05-03] MEDS ORDERED: FLUO-191 PO (13:16)
== END 2019-05-03 14:00 | disposition home or self-care (01) | DRG 750 ==
LOC: EMS 14:52 → B3A 19:37 → B2S 05-02 12:45
DX: F25.1 Schizoaffective disorder, depressive type (principal); R45.851 Suicidal ideations; Z59.0 Homelessness; F15.10 Other stimulant abuse, uncomplicated; K59.00 Constipation, unspecified; E55.9 Vitamin D deficiency, unspecified; R03.0 Elevated blood-pressure reading, without diagnosis of hypertension; I10 Essential (primary) hypertension; D64.9 Anemia, unspecified; F12.90 Cannabis use, unspecified, uncomplicated; F10.10 Alcohol abuse, uncomplicated; F17.210 Nicotine dependence, cigarettes, uncomplicated; Z71.6 Tobacco abuse counseling; Z79.899 Other long term (current) drug therapy
CPT/HCPCS: 84439; 84443; G0480; J1200

== ENCOUNTER 2019-09-02 22:13 | Inpatient (IN) | payer MEDICAID ==
[~2019-09-02] VITALS: Ht 180.3 cm; Wt 113.6 kg
[~2019-09-02 22:13] MED LIST changes: +BENZ1TAB10 PO; +FLUO-191 PO; -QUET100T PO; +RISP3 PO
[2019-09-02] MEDS ORDERED: QUET100T PO (22:49)
[2019-09-02 23:11] LABS: BASOPHILS % (AUTO) 1.2 % (0.0-2.0); EOSINOPHILS % (AUTO) 6.3 % (1.0-6.0); HEMATOCRIT 40.3 % (41-53); HEMOGLOBIN 13.4 g/dL (13.5-17.5); LYMPHOCYTES % (AUTO) 44.1 % (22.0-44.0); MEAN CORPUSCULAR HEMOGLOBIN 27.7 pg (26.0-34.0); MEAN CORPUSCULAR HGB CONC 33.2 G/dL (31.0-37.0); MEAN CORPUSCULAR VOLUME 83 fL (80-100); MONOCYTES # (AUTO) 0.4 K/uL (0.1-1.0); MONOCYTES % (AUTO) 6.3 % (2.0-9.0); NEUTROPHILS # (AUTO) 2.8 K/uL (1.8-7.7); NEUTROPHILS % (AUTO) 42.1 % (40.0-70.0); PLATELET COUNT (AUTO) 217 K/uL (150-450); RED BLOOD CELL COUNT(AUTO) 4.83 MIL/uL (4.50-5.90); RED CELL DISTRIBUTION WIDTH 13.6 % (11.5-14.5)
[2019-09-02 23:23] LABS: AMPHET/METH SCREEN,URINE POSITIVE (NEGATIVE); BARBITURATE SCREEN, URINE NEGATIVE (NEGATIVE); BENZODIAZEPINES SCREEN,URINE NEGATIVE (NEGATIVE); CANNABINOID SCREEN,URINE POSITIVE (NEGATIVE); COCAINE SCREEN,URINE NEGATIVE (NEGATIVE); METHADONE SCREEN, URINE NEGATIVE (NEGATIVE); OPIATE SCREEN,URINE NEGATIVE (NEGATIVE)
[2019-09-02 23:25] LABS: PHENCYCLIDINE SCREEN,URINE NEGATIVE (NEGATIVE)
[2019-09-02 23:30] LABS: ANION GAP 10 mmol/L (8-16); CALCIUM, TOTAL 8.9 mg/dL (8.8-10.5); CARBON DIOXIDE 26 mmol/L (22-29); CHLORIDE 101 mmol/L (98-107); CREATININE 0.91 mg/dL (0.60-1.30); GLOMERULAR FILTR. RATE CALC > 60 mL/min (>60); GLUCOSE,RANDOM 92 mg/dL (70-110); POTASSIUM 4.1 mmol/L (3.5-5.1); SODIUM SERUM 137 mmol/L (136-145); UREA NITROGEN, BLOOD 14 mg/dL (7-18)
[2019-09-02 23:35] LABS: ALANINE AMINOTRANSFERASE 20 U/L (12-78); ALBUMIN 3.6 g/dL (3.4-5.0); ALKALINE PHOSPHATASE 28 U/L (46-116); ASPARTATE AMINOTRANSFERASE 16 U/L (15-37); BILIRUBIN,TOTAL 0.6 mg/dL (0.1-1.0); TOTAL PROTEIN, SERUM 7.4 g/dL (6.4-8.2)
[2019-09-03 03:47] LABS: INFLUENZA TYPE A NEGATIVE FOR TYPE A (NEGATIVE); INFLUENZA TYPE B NEGATIVE FOR TYPE B (NEGATIVE)
[2019-09-03] MEDS ORDERED: ONDANSETRON HCL 4 MG/2 ML VIAL IVP PRN ×2 (04:00→22:00)
[2019-09-03] MEDS ORDERED: 0.9% SODIUM CHLORIDE 10 ML SYRINGE IVP PRN (04:00)
[2019-09-03] MEDS ORDERED: ACETAMINOPHEN 325 MG TABLET PO PRN (04:00)
[2019-09-03 06:09] VITALS: BP 108/68
[2019-09-03 09:30] VITALS: BP 95/60
[2019-09-03 13:17] VITALS: BP 109/55
[2019-09-03 16:40] VITALS: BP 112/63
[2019-09-03] MEDS ORDERED: INFLUENZA VIRUS VACCINE QVS 2019-20 (3YR+)/PF 60 MCG/0.5 ML SYRINGE IM ONE (16:45)
[2019-09-03 19:40] VITALS: BP 116/73
[2019-09-03] MEDS: RisperiDONE 3 MG TABLET PO SCH (21:26)
[2019-09-03] MEDS: BENZTROPINE MESYLATE 1 MG TABLET PO SCH (21:36)
[2019-09-03] MEDS ORDERED: ALBUTEROL SULFATE 2.5 MG/0.5 ML NEB SOLUTION NEB PRN (22:00)
[2019-09-03] MEDS ORDERED: IPRATROPIUM BROMIDE 0.5 MG/2.5 ML NEB SOLUTION NEB PRN (22:00)
[2019-09-03] MEDS ORDERED: MAGNESIUM HYDROXIDE SUSPENSION 30 ML UDCUP PO PRN (22:00)
[2019-09-03] MEDS ORDERED: BISACODYL 10 MG RECTAL RECTAL SUPPOSITORY PR PRN (22:00)
[2019-09-03] MEDS ORDERED: HYDROCODONE/ACETAMINOPHEN 5-325 MG TABLET PO PRN (22:00)
[2019-09-04] VITALS: BP 111/66
[2019-09-04 04:22] VITALS: BP 109/79
[2019-09-04 08:22] VITALS: BP 116/60
[2019-09-04] MEDS: QUEtiapine FUMARATE 100 MG TABLET PO SCH (08:55)
[2019-09-04] MEDS: DOCUSATE SODIUM 100 MG CAPSULE PO SCH (08:55)
[2019-09-04] MEDS: BENZTROPINE MESYLATE 1 MG TABLET PO SCH (08:55)
[2019-09-04] MEDS: RisperiDONE 3 MG TABLET PO SCH (08:55)
[2019-09-04] MEDS: HEPARIN SODIUM,PORCINE 5,000 UNITS/ML VIAL SQ SCH ×3 (08:56→16:45)
[2019-09-04] MEDS: FLUoxetine HCL 20 MG CAPSULE PO SCH (08:56)
[2019-09-04 12:43] VITALS: BP 110/52
[2019-09-04 16:36] VITALS: BP 109/43
[2019-09-04 20:13] VITALS: BP 98/42
[2019-09-05 00:07] VITALS: BP 119/69
[2019-09-05] MEDS: BENZTROPINE MESYLATE 1 MG TABLET PO SCH ×3 (00:12→20:31)
[2019-09-05] MEDS: DOCUSATE SODIUM 100 MG CAPSULE PO SCH ×3 (00:12→20:31)
[2019-09-05] MEDS: RisperiDONE 3 MG TABLET PO SCH ×3 (00:12→20:31)
[2019-09-05] MEDS: HEPARIN SODIUM,PORCINE 5,000 UNITS/ML VIAL SQ SCH ×4 (00:18→23:43)
[2019-09-05 04:51] VITALS: BP 121/60
[2019-09-05] MEDS: FLUoxetine HCL 20 MG CAPSULE PO SCH (08:08)
[2019-09-05] MEDS: QUEtiapine FUMARATE 100 MG TABLET PO SCH (08:08)
[2019-09-05 08:29] VITALS: BP 114/72
[2019-09-05 11:43] VITALS: BP 113/65
[2019-09-05 16:04] VITALS: BP 152/51
[2019-09-05 20:00] VITALS: BP 147/77
[2019-09-05] MEDS: ZOLPIDEM TARTRATE 5 MG TABLET PO PRN (20:31)
[2019-09-06] VITALS (7 sets, daily range): BP systolic 102–142; BP diastolic 51–88
[2019-09-06] MEDS: DOCUSATE SODIUM 100 MG CAPSULE PO SCH ×2 (09:07→20:16)
[2019-09-06] MEDS: QUEtiapine FUMARATE 100 MG TABLET PO SCH (09:08)
[2019-09-06] MEDS: FLUoxetine HCL 20 MG CAPSULE PO SCH (09:08)
[2019-09-06] MEDS: BENZTROPINE MESYLATE 1 MG TABLET PO SCH ×2 (09:11→20:16)
[2019-09-06] MEDS: RisperiDONE 3 MG TABLET PO SCH ×2 (09:11→20:16)
[2019-09-06] MEDS: HEPARIN SODIUM,PORCINE 5,000 UNITS/ML VIAL SQ SCH ×2 (09:13→16:41)
[2019-09-07 05:00] VITALS: BP 118/56
[2019-09-07] MEDS: HEPARIN SODIUM,PORCINE 5,000 UNITS/ML VIAL SQ SCH ×4 (08:00→15:52)
[2019-09-07 08:10] VITALS: BP 122/73
[2019-09-07] MEDS: RisperiDONE 3 MG TABLET PO SCH ×2 (08:34→20:28)
[2019-09-07] MEDS: BENZTROPINE MESYLATE 1 MG TABLET PO SCH ×2 (08:34→20:28)
[2019-09-07] MEDS: DOCUSATE SODIUM 100 MG CAPSULE PO SCH ×2 (08:34→20:28)
[2019-09-07] MEDS: FLUoxetine HCL 20 MG CAPSULE PO SCH (08:35)
[2019-09-07] MEDS: QUEtiapine FUMARATE 100 MG TABLET PO SCH (08:35)
[2019-09-07 11:24] VITALS: BP 114/64
[2019-09-07] MEDS: ACETAMINOPHEN 325 MG TABLET PO PRN (11:38)
[2019-09-07 15:46] VITALS: BP 115/47
[2019-09-07 18:00] VITALS: BP 125/75
[2019-09-07] MEDS ORDERED: LORazepam 2 MG/ML VIAL IM ONE (18:15)
[2019-09-07 20:00] VITALS: BP 106/57
[2019-09-07] MEDS: ZOLPIDEM TARTRATE 5 MG TABLET PO PRN (20:28)
[2019-09-08 05:15] VITALS: BP 117/62
[2019-09-08] MEDS: DOCUSATE SODIUM 100 MG CAPSULE PO SCH (08:02)
[2019-09-08] MEDS: RisperiDONE 3 MG TABLET PO SCH (08:02)
[2019-09-08] MEDS: FLUoxetine HCL 20 MG CAPSULE PO SCH (08:02)
[2019-09-08] MEDS: QUEtiapine FUMARATE 100 MG TABLET PO SCH (08:02)
[2019-09-08] MEDS: BENZTROPINE MESYLATE 1 MG TABLET PO SCH (08:02)
[2019-09-08] MEDS: HEPARIN SODIUM,PORCINE 5,000 UNITS/ML VIAL SQ SCH ×2 (08:03)
[2019-09-08 08:09] VITALS: BP 152/79
[2019-09-08] MEDS: ACETAMINOPHEN 325 MG TABLET PO PRN (08:10)
[2019-09-08 11:36] VITALS: BP 107/78
[2019-09-08] MEDS ORDERED: FLUO-191 PO (13:22)
[2019-09-08] MEDS ORDERED: BENZ1TAB10 PO (13:22)
[2019-09-08] MEDS ORDERED: QUET100T33 PO (13:22)
[2019-09-08] MEDS ORDERED: RISP3 PO (13:22)
[2019-09-08 15:25] VITALS: BP 122/67
== END 2019-09-08 15:45 | disposition home or self-care (01) | DRG 812 ==
LOC: EMS 22:13 → 6N 09-03 05:00
PROVIDERS: ADMIT Hospitalist; ATTEND Hospitalist
DX: T43.621A Poisoning by amphetamines, accidental (unintentional), initial encounter (principal); G93.40 Encephalopathy, unspecified; R45.851 Suicidal ideations; F20.9 Schizophrenia, unspecified; T40.7X1A Poisoning by cannabis (derivatives), accidental (unintentional), initial encounter; Z87.891 Personal history of nicotine dependence; F32.9 Major depressive disorder, single episode, unspecified
CPT/HCPCS: 87635; 87804; 93005; G0480; J1644; J2060

== ENCOUNTER 2019-10-01 06:30 | Inpatient (IN) | payer MEDICAID ==
[~2019-10-01] VITALS: Ht 180.3 cm; Wt 119.5 kg
[~2019-10-01 06:30] MED LIST changes: +QUET100T33 PO
[2019-10-01] MEDS ORDERED: TUBERCULIN, PURIFIED PROTEIN DERIVATIVE 5 TU/0.1 ML SYRINGE ID ONE (09:15)
[2019-10-01] MEDS ORDERED: ZOLPIDEM TARTRATE 10 MG TABLET PO PRN (09:15)
[2019-10-01] MEDS ORDERED: HALOPERIDOL 5 MG TABLET PO PRN (09:15)
[2019-10-01 09:34] VITALS: BP 137/91
[2019-10-01] MEDS ORDERED: INFLUENZA VIRUS VACCINE QVS 2019-20 (3YR+)/PF 60 MCG/0.5 ML SYRINGE IM ONE (11:45)
[2019-10-01 16:07] VITALS: BP 138/83
[2019-10-01] MEDS: LORazepam 2 MG TABLET PO PRN ×2 (17:06→21:08)
[2019-10-01] MEDS ORDERED: PETROLATUM,WHITE 28 GM JELLY TP PRN (18:00)
[2019-10-01] MEDS ORDERED: MAG HYDROX/AL HYDROX/SIMETH ES 30 ML SUSPENSION UDCUP PO PRN (18:00)
[2019-10-01] MEDS ORDERED: ONDANSETRON HCL 4 MG TABLET PO PRN (18:00)
[2019-10-01] MEDS ORDERED: MAGNESIUM HYDROXIDE SUSPENSION 30 ML UDCUP PO PRN (18:00)
[2019-10-01] MEDS ORDERED: ACETAMINOPHEN 325 MG TABLET PO PRN (18:00)
[2019-10-01] MEDS ORDERED: DOCUSATE SODIUM 100 MG CAPSULE PO PRN (18:00)
[2019-10-01] MEDS ORDERED: CloNIDine HCL 0.1 MG TABLET PO PRN (18:00)
[2019-10-01] MEDS ORDERED: GuaiFENesin/D-METHORPHAN [SUGAR-FREE] 200-20MG/10 ML SYRUP UDCUP PO PRN (18:00)
[2019-10-01] MEDS ORDERED: IBUPROFEN 400 MG TABLET PO PRN (18:00)
[2019-10-01] MEDS ORDERED: LOPERAMIDE HCL 2 MG CAPSULE PO PRN (18:00)
[2019-10-01] MEDS ORDERED: ALBUTEROL SULFATE HFA 90 MCG/PUFF 8 GM INHALER IH PRN (18:00)
[2019-10-01] MEDS ORDERED: NICOTINE 14 MG/24 HOUR PATCH TD PRN (18:00)
[2019-10-02 03:48] VITALS: BP 109/69
[2019-10-02 08:36] VITALS: BP 136/84
[2019-10-02] MEDS: LORazepam 2 MG TABLET PO PRN (09:56)
[2019-10-02 16:11] VITALS: BP 134/70
== END 2019-10-02 17:05 | disposition home or self-care (01) | DRG 750 ==
LOC: B3A 09:48
PROVIDERS: ADMIT Psychiatry & Neurology Psychiatry; ATTEND Psychiatry & Neurology Psychiatry
DX: F25.9 Schizoaffective disorder, unspecified (principal); R45.851 Suicidal ideations; Z59.0 Homelessness; E66.9 Obesity, unspecified; F15.10 Other stimulant abuse, uncomplicated; F17.200 Nicotine dependence, unspecified, uncomplicated; F31.9 Bipolar disorder, unspecified; I10 Essential (primary) hypertension; K59.00 Constipation, unspecified; Z56.0 Unemployment, unspecified; Z68.37 Body mass index [BMI] 37.0-37.9, adult

== ENCOUNTER 2019-10-04 21:01 | Emergency (ER) | payer MEDICAID ==
[~2019-10-04] VITALS: Ht 180.3 cm; Wt 113.6 kg
[2019-10-04 22:34] LABS: BASOPHILS % (AUTO) 1.4 % (0.0-2.0); EOSINOPHILS % (AUTO) 3.1 % (1.0-6.0); HEMATOCRIT 43.4 % (41-53); HEMOGLOBIN 14.1 g/dL (13.5-17.5); MEAN CORPUSCULAR HEMOGLOBIN 27.1 pg (26.0-34.0); MEAN CORPUSCULAR HGB CONC 32.4 G/dL (31.0-37.0); MEAN CORPUSCULAR VOLUME 83 fL (80-100); MONOCYTES # (AUTO) 0.5 K/uL (0.1-1.0); MONOCYTES % (AUTO) 6.5 % (2.0-9.0); PLATELET COUNT (AUTO) 294 K/uL (150-450); RED CELL DISTRIBUTION WIDTH 13.4 % (11.5-14.5)
[2019-10-04 22:46] LABS: ANION GAP 12 mmol/L (8-16); CALCIUM, TOTAL 9.3 mg/dL (8.8-10.5); CARBON DIOXIDE 26 mmol/L (22-29); CHLORIDE 99 mmol/L (98-107); CREATININE 0.92 mg/dL (0.60-1.30); GLOMERULAR FILTR. RATE CALC > 60 mL/min (>60); GLUCOSE,RANDOM 79 mg/dL (70-110); POTASSIUM 4.1 mmol/L (3.5-5.1); SODIUM SERUM 137 mmol/L (136-145); UREA NITROGEN, BLOOD 20 mg/dL (7-18)
[2019-10-04 22:52] LABS: ALANINE AMINOTRANSFERASE 27 U/L (12-78); ALBUMIN 4.5 g/dL (3.4-5.0); ALKALINE PHOSPHATASE 28 U/L (46-116); ASPARTATE AMINOTRANSFERASE 18 U/L (15-37); BILIRUBIN,TOTAL 0.6 mg/dL (0.1-1.0); TOTAL PROTEIN, SERUM 8.8 g/dL (6.4-8.2)
[2019-10-04] MEDS: DiphenhydrAMINE HCL 25 MG CAPSULE PO ONE (23:02)
[2019-10-04 23:22] VITALS: BP 126/81
== END 2019-10-04 23:23 | disposition home or self-care (01) ==
LOC: EMS 21:10
DX: F41.9 Anxiety disorder, unspecified (principal); F20.0 Paranoid schizophrenia; F15.90 Other stimulant use, unspecified, uncomplicated; F32.9 Major depressive disorder, single episode, unspecified; F17.210 Nicotine dependence, cigarettes, uncomplicated; F12.90 Cannabis use, unspecified, uncomplicated; Z59.0 Homelessness
CPT/HCPCS: 36415; 80053; 85025; 99283; G0480

== ENCOUNTER 2019-11-25 10:41 | Emergency (ER) | payer MEDICAID ==
[~2019-11-25] VITALS: Ht 180.3 cm; Wt 97.7 kg
[2019-11-25 10:50] VITALS: BP 123/73
[2019-11-25] MEDS ORDERED: IBUPROFEN 800 MG TABLET PO ONE (11:15)
== END 2019-11-25 12:11 | disposition home or self-care (01) ==
LOC: EMS 10:45
DX: F20.9 Schizophrenia, unspecified (principal); M25.512 Pain in left shoulder; F17.210 Nicotine dependence, cigarettes, uncomplicated; F15.90 Other stimulant use, unspecified, uncomplicated; F32.9 Major depressive disorder, single episode, unspecified; F12.90 Cannabis use, unspecified, uncomplicated; W06.XXXA Fall from bed, initial encounter; Y93.89 Activity, other specified; Y92.89 Other specified places as the place of occurrence of the external cause; Y99.8 Other external cause status

== ENCOUNTER 2019-12-31 09:12 | Emergency (ER) | payer MEDICAID ==
[~2019-12-31] VITALS: Ht 180.3 cm; Wt 81.8 kg
[2019-12-31 11:50] VITALS: BP 121/65
== END 2019-12-31 11:51 | disposition home or self-care (01) ==
LOC: EMS 09:13
DX: F32.9 Major depressive disorder, single episode, unspecified (principal); F20.9 Schizophrenia, unspecified; F12.90 Cannabis use, unspecified, uncomplicated; F15.90 Other stimulant use, unspecified, uncomplicated; F17.210 Nicotine dependence, cigarettes, uncomplicated
CPT/HCPCS: Z7502

== ENCOUNTER 2020-04-08 07:32 | Emergency (ER) | payer MEDICAID ==
[~2020-04-08] VITALS: Ht 180.3 cm; Wt 113.6 kg
[2020-04-08 08:40] LABS: AMPHET/METH SCREEN,URINE NEGATIVE (NEGATIVE); BARBITURATE SCREEN, URINE NEGATIVE (NEGATIVE); BENZODIAZEPINES SCREEN,URINE NEGATIVE (NEGATIVE); CANNABINOID SCREEN,URINE NEGATIVE (NEGATIVE); COCAINE SCREEN,URINE NEGATIVE (NEGATIVE); METHADONE SCREEN, URINE NEGATIVE (NEGATIVE); OPIATE SCREEN,URINE NEGATIVE (NEGATIVE)
[2020-04-08 08:48] LABS: PHENCYCLIDINE SCREEN,URINE NEGATIVE (NEGATIVE)
[2020-04-08 09:07] VITALS: BP 110/78
== END 2020-04-08 09:09 | disposition home or self-care (01) ==
LOC: EMS 07:33
DX: F20.9 Schizophrenia, unspecified (principal); F32.9 Major depressive disorder, single episode, unspecified; F17.210 Nicotine dependence, cigarettes, uncomplicated; F12.90 Cannabis use, unspecified, uncomplicated; F15.90 Other stimulant use, unspecified, uncomplicated

== ENCOUNTER 2022-09-06 14:22 | Inpatient (IN) | payer MEDICAID ==
[~2022-09-06] VITALS: Ht 180.3 cm; Wt 102.8 kg
[2022-09-06] MEDS ORDERED: LORazepam 2 MG TABLET PO PRN (19:15)
[2022-09-06] MEDS ORDERED: HALOPERIDOL 5 MG TABLET PO PRN (19:15)
[2022-09-06] MEDS ORDERED: ZOLPIDEM TARTRATE 10 MG TABLET PO PRN (19:15)
[2022-09-06] MEDS ORDERED: INFLUENZA VIRUS VACCINE QVS 2022-23 (6MO+)/PF 60 MCG/0.5 ML SYRINGE IM. ONE (20:00)
[2022-09-06 21:04] VITALS: BP 118/71
[2022-09-07] MEDS ORDERED: ALBUTEROL SULFATE HFA 90 MCG/PUFF 8 GM INHALER IH PRN (08:45)
[2022-09-07] MEDS ORDERED: ACETAMINOPHEN 325 MG TABLET PO PRN (08:45)
[2022-09-07] MEDS ORDERED: MAGNESIUM HYDROXIDE SUSPENSION 30 ML UDCUP PO PRN (08:45)
[2022-09-07] MEDS ORDERED: BACITRACIN 28 GM OINTMENT TP PRN (08:45)
[2022-09-07] MEDS ORDERED: BENZOCAINE/MENTHOL LOZENGE PO PRN (08:45)
[2022-09-07] MEDS ORDERED: DOCUSATE SODIUM 100 MG CAPSULE PO PRN (08:45)
[2022-09-07] MEDS ORDERED: CloNIDine HCL 0.1 MG TABLET PO PRN (08:45)
[2022-09-07] MEDS ORDERED: LOPERAMIDE HCL 2 MG CAPSULE PO PRN (08:45)
[2022-09-07] MEDS ORDERED: IBUPROFEN 600 MG TABLET PO PRN (08:45)
[2022-09-07] MEDS ORDERED: MAG HYDROX/AL HYDROX/SIMETH ES 30 ML SUSPENSION UDCUP PO PRN (08:45)
[2022-09-07] MEDS ORDERED: PETROLATUM,WHITE 28 GM JELLY TP PRN (08:45)
[2022-09-07] MEDS ORDERED: ONDANSETRON HCL 4 MG TABLET PO PRN (08:45)
[2022-09-07] MEDS ORDERED: OMEPRAZOLE 20 MG CAPSULE PO PRN (08:45)
[2022-09-07 08:46] VITALS: BP 96/60
[2022-09-07 21:40] VITALS: BP 142/97
[2022-09-08 09:38] VITALS: BP 97/61
[2022-09-08] MEDS: RisperiDONE 1 MG TABLET PO SCH ×2 (10:51→16:19)
[2022-09-08 12:56] LABS: GLUCOMETER DEV NAME(LOC) POC.BV
[2022-09-08 20:00] VITALS: BP 111/69
[2022-09-09 08:15] VITALS: BP 115/65
[2022-09-09] MEDS: RisperiDONE 1 MG TABLET PO SCH ×2 (09:01→16:45)
[2022-09-09 20:21] VITALS: BP 111/73
[2022-09-10 07:37] LABS: EOSINOPHILS % (AUTO) 4.2 % (1.0-6.0); HEMATOCRIT 42.8 % (41-53); HEMOGLOBIN 14.3 g/dL (13.5-17.5); LYMPHOCYTES # (AUTO) 1.6 K/uL (1.0-4.8); LYMPHOCYTES % (AUTO) 33.8 % (22.0-44.0); MEAN CORPUSCULAR HEMOGLOBIN 28.2 pg (26.0-34.0); MEAN CORPUSCULAR HGB CONC 33.3 G/dL (31.0-37.0); MEAN CORPUSCULAR VOLUME 85 fL (80-100); MONOCYTES # (AUTO) 0.4 K/uL (0.1-1.0); MONOCYTES % (AUTO) 9.1 % (2.0-9.0); NEUTROPHILS # (AUTO) 2.4 K/uL (1.8-7.7); NEUTROPHILS % (AUTO) 51.9 % (40.0-70.0); PLATELET COUNT (AUTO) 213 K/uL (150-450); RED BLOOD CELL COUNT(AUTO) 5.06 MIL/uL (4.50-5.90); RED CELL DISTRIBUTION WIDTH 14.9 % (11.5-14.5)
[2022-09-10 07:43] LABS: HEMOGLOBIN A1C 5.4 % (3.8-5.6)
[2022-09-10 07:47] LABS: ALANINE AMINOTRANSFERASE 15 U/L (12-78); ALBUMIN 3.7 g/dL (3.4-5.0); ALKALINE PHOSPHATASE 65 U/L (46-116); ANION GAP 9 mmol/L (8-16); ASPARTATE AMINOTRANSFERASE 11 U/L (15-37); BILIRUBIN,TOTAL 0.3 mg/dL (0.1-1.0); CALCIUM, TOTAL 8.7 mg/dL (8.8-10.5); CARBON DIOXIDE 27 mmol/L (22-29); CHLORIDE 106 mmol/L (98-107); CHOL/HDL RATIO 4.6 (4.2-7.3); CHOLESTEROL 196 mg/dL (131-200); CREATININE 0.85 mg/dL (0.60-1.30); FREE T4 (FREE THYROXINE) 1.05 ng/dL (0.76-1.46); GLOMERULAR FILTR. RATE CALC > 60 mL/min (>60); GLUCOSE,RANDOM 86 mg/dL (70-110); HDL CHOLESTEROL 43 mg/dL (40-60); LDL CHOL (CALC.) 127 mg/dL (0-130); SODIUM SERUM 142 mmol/L (136-145); THYROID STIMULATING HORMONE 0.68 uIU/mL (0.36-3.74); TOTAL PROTEIN, SERUM 7.2 g/dL (6.4-8.2); TRIGLYCERIDES 128 mg/dL (15-150); UREA NITROGEN, BLOOD 16 mg/dL (7-18)
[2022-09-10 07:53] LABS: APPEARANCE,URINE CLEAR (CLEAR); BILIRUBIN,URINE NEGATIVE (NEGATIVE); GLUCOSE, URINE (UA) NEGATIVE (NEGATIVE); KETONES,URINE NEGATIVE (NEGATIVE); LEUKOCYTE ESTERASE ,URINE NEGATIVE (NEGATIVE); NITRATE,URINE NEGATIVE (NEGATIVE); OCCULT BLOOD,URINE NEGATIVE (NEGATIVE); PROTEIN,URINE NEGATIVE (NEGATIVE); SPECIFIC GRAVITIY, URINE 1.025 (1.003-1.030); UROBILINOGEN,URINE <=1.0 mg/dL (<=1.0)
[2022-09-10 07:59] LABS: AMPHET/METH SCREEN,URINE NEGATIVE (NEGATIVE); BARBITURATE SCREEN, URINE NEGATIVE (NEGATIVE); BENZODIAZEPINES SCREEN,URINE NEGATIVE (NEGATIVE); CANNABINOID SCREEN,URINE NEGATIVE (NEGATIVE); COCAINE SCREEN,URINE NEGATIVE (NEGATIVE); METHADONE SCREEN, URINE NEGATIVE (NEGATIVE); OPIATE SCREEN,URINE NEGATIVE (NEGATIVE); PHENCYCLIDINE SCREEN,URINE NEGATIVE (NEGATIVE)
[2022-09-10 08:46] VITALS: BP 110/66
[2022-09-10] MEDS: RisperiDONE 1 MG TABLET PO SCH ×2 (08:58→16:56)
[2022-09-10 20:19] VITALS: BP 107/65
[2022-09-11 07:36] LABS: GLUCOMETER DEV NAME(LOC) POC.BV
[2022-09-11 08:34] VITALS: BP 110/64
[2022-09-11] MEDS: RisperiDONE 1 MG TABLET PO SCH ×2 (09:11→16:09)
[2022-09-11 21:00] VITALS: BP 106/76
[2022-09-12 08:46] VITALS: BP 102/60
[2022-09-12] MEDS: RisperiDONE 1 MG TABLET PO SCH ×2 (09:08→16:20)
[2022-09-12 20:23] VITALS: BP 117/72
[2022-09-13 08:35] VITALS: BP 113/60
[2022-09-13] MEDS: RisperiDONE 1 MG TABLET PO SCH ×2 (09:10→17:26)
[2022-09-13 20:27] VITALS: BP 109/69
[2022-09-14] MEDS: RisperiDONE 1 MG TABLET PO SCH (08:27)
[2022-09-14 08:52] VITALS: BP 119/79
[2022-09-14] MEDS ORDERED: RISP1TAB48 PO (11:33)
== END 2022-09-14 13:00 | disposition home or self-care (01) | DRG 750 ==
LOC: B2S 19:16
PROVIDERS: ADMIT Psychiatry & Neurology Psychiatry; ATTEND Psychiatry & Neurology Psychiatry
DX: F25.0 Schizoaffective disorder, bipolar type (principal); E66.9 Obesity, unspecified; I10 Essential (primary) hypertension; F15.10 Other stimulant abuse, uncomplicated; F17.200 Nicotine dependence, unspecified, uncomplicated; W22.09XA Striking against other stationary object, initial encounter; Z20.822 Contact with and (suspected) exposure to COVID-19; K59.00 Constipation, unspecified; Z28.21 Immunization not carried out because of patient refusal; Z71.51 Drug abuse counseling and surveillance of drug abuser; Z71.41 Alcohol abuse counseling and surveillance of alcoholic; Z68.31 Body mass index [BMI] 31.0-31.9, adult; Z72.89 Other problems related to lifestyle; Y93.89 Activity, other specified; Y92.89 Other specified places as the place of occurrence of the external cause; Y99.8 Other external cause status
CPT/HCPCS: 80053; 80061; 80307; 81003; 83036; 84439; 84443; 85025

== ENCOUNTER 2023-02-16 13:15 | Inpatient (IN) | payer MEDICAID ==
[~2023-02-16] VITALS: Ht 180.3 cm; Wt 97.1 kg
[~2023-02-16 13:15] MED LIST changes: -BENZ1TAB10 PO; -FLUO-191 PO; -QUET100T33 PO; +RISP1TAB98 PO; -RISP3 PO
[2023-02-16] MEDS ORDERED: ZOLPIDEM TARTRATE 10 MG TABLET PO PRN (14:30)
[2023-02-16 15:49] LABS: BASOPHILS % (AUTO) 0.9 % (0.0-2.0); EOSINOPHILS % (AUTO) 4.5 % (1.0-6.0); HEMATOCRIT 36.5 % (41-53); HEMOGLOBIN 11.9 g/dL (13.5-17.5); LYMPHOCYTES # (AUTO) 1.5 K/uL (1.0-4.8); LYMPHOCYTES % (AUTO) 30.2 % (22.0-44.0); MEAN CORPUSCULAR HEMOGLOBIN 27.2 pg (26.0-34.0); MEAN CORPUSCULAR HGB CONC 32.6 G/dL (31.0-37.0); MEAN CORPUSCULAR VOLUME 83 fL (80-100); MONOCYTES # (AUTO) 0.4 K/uL (0.1-1.0); MONOCYTES % (AUTO) 8.5 % (2.0-9.0); NEUTROPHILS # (AUTO) 2.7 K/uL (1.8-7.7); NEUTROPHILS % (AUTO) 55.9 % (40.0-70.0); PLATELET COUNT (AUTO) 143 K/uL (150-450); RED BLOOD CELL COUNT(AUTO) 4.37 MIL/uL (4.50-5.90); WHITE BLOOD COUNT (AUTO) 4.8 K/uL (4.5-11.0)
[2023-02-16 15:51] LABS: COVID AG,FIA SOURCE NASOPHARYNGEAL
[2023-02-16 16:02] LABS: ANION GAP 9 mmol/L (8-16); CALCIUM, TOTAL 8.1 mg/dL (8.8-10.5); CARBON DIOXIDE 29 mmol/L (22-29); CHLORIDE 101 mmol/L (98-107); CREATININE 0.76 mg/dL (0.60-1.30); GLOMERULAR FILTR. RATE CALC > 60 mL/min (>60); GLUCOSE,RANDOM 95 mg/dL (70-110); POTASSIUM 4.1 mmol/L (3.5-5.1); SODIUM SERUM 139 mmol/L (136-145); UREA NITROGEN, BLOOD 11 mg/dL (7-18)
[2023-02-16 16:06] LABS: ALCOHOL, BLOOD (SERUM) < 3 mg/dL (0-10)
[2023-02-16 16:08] LABS: ALANINE AMINOTRANSFERASE 9 U/L (12-78); ALBUMIN 3.2 g/dL (3.4-5.0); ALKALINE PHOSPHATASE 23 U/L (46-116); ASPARTATE AMINOTRANSFERASE 11 U/L (15-37); BILIRUBIN,TOTAL 0.5 mg/dL (0.1-1.0); TOTAL PROTEIN, SERUM 6.4 g/dL (6.4-8.2)
[2023-02-16 16:15] LABS: SARS-COV2 (COVID) ANTIGEN,FIA Negative (Negative)
[2023-02-16 17:32] VITALS: BP 106/72; PULSE 65; RESP 18; TEMP 98
[2023-02-16 21:49] VITALS: BP 105/65; PULSE 74; RESP 18; TEMP 97.7
[2023-02-17] MEDS ORDERED: MAGNESIUM HYDROXIDE SUSPENSION 30 ML UDCUP PO PRN (07:15)
[2023-02-17] MEDS ORDERED: ONDANSETRON HCL 4 MG TABLET PO PRN (07:15)
[2023-02-17] MEDS ORDERED: LOPERAMIDE HCL 2 MG CAPSULE PO PRN (07:15)
[2023-02-17] MEDS ORDERED: IBUPROFEN 600 MG TABLET PO PRN (07:15)
[2023-02-17] MEDS ORDERED: MAG HYDROX/AL HYDROX/SIMETH ES 30 ML SUSPENSION UDCUP PO PRN (07:15)
[2023-02-17] MEDS ORDERED: DOCUSATE SODIUM 100 MG CAPSULE PO PRN (07:15)
[2023-02-17] MEDS ORDERED: BACITRACIN 28 GM OINTMENT TP PRN (07:15)
[2023-02-17] MEDS ORDERED: ALBUTEROL SULFATE HFA 90 MCG/PUFF 8 GM INHALER IH PRN (07:15)
[2023-02-17] MEDS ORDERED: PETROLATUM,WHITE 28 GM JELLY TP PRN (07:15)
[2023-02-17] MEDS ORDERED: ACETAMINOPHEN 325 MG TABLET PO PRN (07:15)
[2023-02-17] MEDS ORDERED: BENZOCAINE/MENTHOL LOZENGE PO PRN (07:15)
[2023-02-17] MEDS ORDERED: OMEPRAZOLE 20 MG CAPSULE PO PRN (07:15)
[2023-02-17] MEDS ORDERED: CloNIDine HCL 0.1 MG TABLET PO PRN (07:15)
[2023-02-17 10:04] VITALS: BP 113/73; PULSE 71; RESP 18; TEMP 97.4
[2023-02-17] MEDS: RisperiDONE 1 MG TABLET PO SCH (16:20)
[2023-02-17 21:49] VITALS: BP 105/65; PULSE 72; RESP 18; TEMP 99.1
[2023-02-18 08:19] VITALS: BP 137/83; PULSE 88; RESP 17; TEMP 97.5
[2023-02-18] MEDS: RisperiDONE 1 MG TABLET PO SCH ×2 (09:20→16:41)
[2023-02-18] MEDS: HALOPERIDOL 5 MG TABLET PO PRN (17:01)
[2023-02-18] MEDS: LORazepam 2 MG TABLET PO PRN (17:01)
[2023-02-18] MEDS ORDERED: LORazepam 2 MG/ML VIAL IM ONE (17:30)
[2023-02-18] MEDS ORDERED: DiphenhydrAMINE HCL 50 MG/ML VIAL IM ONE (17:30)
[2023-02-18] MEDS ORDERED: HALOPERIDOL LACTATE 5 MG/ML VIAL IM ONE (17:30)
[2023-02-18 22:37] VITALS: RESP 18
[2023-02-19 09:34] VITALS: BP 108/60; PULSE 66; RESP 18; TEMP 97.6
[2023-02-19] MEDS: RisperiDONE 2 MG TABLET PO SCH ×2 (10:38→16:30)
[2023-02-19] MEDS: LORazepam 2 MG TABLET PO PRN (17:33)
[2023-02-19] MEDS: HALOPERIDOL 5 MG TABLET PO PRN (17:33)
[2023-02-19] MEDS ORDERED: HALOPERIDOL LACTATE 5 MG/ML VIAL IM ONE (18:15)
[2023-02-19] MEDS ORDERED: LORazepam 2 MG/ML VIAL IM ONE (18:15)
[2023-02-19] MEDS ORDERED: DiphenhydrAMINE HCL 50 MG/ML VIAL IM ONE (18:15)
[2023-02-19] MEDS ORDERED: HALOPERIDOL LACTATE 5 MG/ML VIAL ONE (18:17)
[2023-02-19 22:08] VITALS: BP 128/77; PULSE 70; RESP 18; TEMP 98
[2023-02-20 08:18] VITALS: RESP 18
[2023-02-20] MEDS: LORazepam 2 MG TABLET PO PRN ×2 (09:16→16:14)
[2023-02-20] MEDS: RisperiDONE 2 MG TABLET PO SCH ×2 (09:16→16:14)
[2023-02-20] MEDS: HALOPERIDOL 5 MG TABLET PO PRN ×2 (09:16→16:13)
== END 2023-02-20 18:40 | disposition home or self-care (01) | DRG 750 ==
LOC: EMS 13:15 → 3EI 16:20 → 3EC 02-19 18:16
PROVIDERS: ADMIT Psychiatry & Neurology Psychiatry; ATTEND Psychiatry & Neurology Psychiatry
DX: F20.9 Schizophrenia, unspecified (principal); R45.851 Suicidal ideations; Z91.148 Patient's other noncompliance with medication regimen for other reason; E66.9 Obesity, unspecified; F31.9 Bipolar disorder, unspecified; Z20.822 Contact with and (suspected) exposure to COVID-19; I10 Essential (primary) hypertension; K59.00 Constipation, unspecified; F10.90 Alcohol use, unspecified, uncomplicated; F41.9 Anxiety disorder, unspecified; F15.10 Other stimulant abuse, uncomplicated; Z72.0 Tobacco use; Z91.199 Patient's noncompliance with other medical treatment and regimen due to unspecified reason; Z68.29 Body mass index [BMI] 29.0-29.9, adult
CPT/HCPCS: 80053; 85025; 99285; G0480; J1200; J1630; J2060

== ENCOUNTER 2023-03-08 17:31 | Inpatient (IN) | payer MEDICAID ==
[~2023-03-08] VITALS: Ht 180.3 cm; Wt 92.7 kg
[~2023-03-08 17:31] MED LIST changes: +RISP2TAB86 PO
[2023-03-08] MEDS ORDERED: HALOPERIDOL 5 MG TABLET PO PRN (23:30)
[2023-03-08] MEDS ORDERED: LORazepam 2 MG TABLET PO PRN (23:30)
[2023-03-08] MEDS ORDERED: ZOLPIDEM TARTRATE 10 MG TABLET PO PRN (23:30)
[2023-03-08] MEDS ORDERED: RisperiDONE 1 MG TABLET PO ONE (23:30)
[2023-03-08 23:38] LABS: BASOPHILS % (AUTO) 1.2 % (0.0-2.0); EOSINOPHILS % (AUTO) 3.7 % (1.0-6.0); HEMATOCRIT 38.6 % (41-53); HEMOGLOBIN 12.6 g/dL (13.5-17.5); LYMPHOCYTES # (AUTO) 2.1 K/uL (1.0-4.8); LYMPHOCYTES % (AUTO) 37.8 % (22.0-44.0); MEAN CORPUSCULAR HEMOGLOBIN 27.3 pg (26.0-34.0); MEAN CORPUSCULAR HGB CONC 32.6 G/dL (31.0-37.0); MEAN CORPUSCULAR VOLUME 84 fL (80-100); MONOCYTES # (AUTO) 0.4 K/uL (0.1-1.0); MONOCYTES % (AUTO) 6.5 % (2.0-9.0); NEUTROPHILS # (AUTO) 2.8 K/uL (1.8-7.7); NEUTROPHILS % (AUTO) 50.8 % (40.0-70.0); PLATELET COUNT (AUTO) 163 K/uL (150-450); RED BLOOD CELL COUNT(AUTO) 4.62 MIL/uL (4.50-5.90); RED CELL DISTRIBUTION WIDTH 13.2 % (11.5-14.5); WHITE BLOOD COUNT (AUTO) 5.5 K/uL (4.5-11.0)
[2023-03-08 23:46] LABS: ANION GAP 8 mmol/L (8-16); CALCIUM, TOTAL 8.8 mg/dL (8.8-10.5); CARBON DIOXIDE 29 mmol/L (22-29); CHLORIDE 102 mmol/L (98-107); CREATININE 0.83 mg/dL (0.60-1.30); GLOMERULAR FILTR. RATE CALC > 60 mL/min (>60); GLUCOSE,RANDOM 88 mg/dL (70-110); SODIUM SERUM 139 mmol/L (136-145); UREA NITROGEN, BLOOD 21 mg/dL (7-18)
[2023-03-08 23:52] LABS: ALANINE AMINOTRANSFERASE 8 U/L (12-78); ALBUMIN 3.8 g/dL (3.4-5.0); ALKALINE PHOSPHATASE 24 U/L (46-116); ASPARTATE AMINOTRANSFERASE 12 U/L (15-37); BILIRUBIN,TOTAL 0.9 mg/dL (0.1-1.0); TOTAL PROTEIN, SERUM 7.3 g/dL (6.4-8.2)
[2023-03-09 00:02] LABS: ALCOHOL, BLOOD (SERUM) < 3 mg/dL (0-10)
[2023-03-09 02:42] LABS: COVID AG,FIA SOURCE NASAL SWAB
[2023-03-09 02:44] LABS: SARS-COV2 (COVID) ANTIGEN,FIA Negative (Negative)
[2023-03-09 04:00] VITALS: BP 99/62; PULSE 76; RESP 16; TEMP 97.7; O2SAT 100
[2023-03-09] MEDS ORDERED: CloNIDine HCL 0.1 MG TABLET PO PRN (06:00)
[2023-03-09] MEDS ORDERED: PETROLATUM,WHITE 28 GM JELLY TP PRN (06:00)
[2023-03-09] MEDS ORDERED: OMEPRAZOLE 20 MG CAPSULE PO PRN (06:00)
[2023-03-09] MEDS ORDERED: ACETAMINOPHEN 325 MG TABLET PO PRN (06:00)
[2023-03-09] MEDS ORDERED: BENZOCAINE/MENTHOL LOZENGE PO PRN (06:00)
[2023-03-09] MEDS ORDERED: IBUPROFEN 600 MG TABLET PO PRN (06:00)
[2023-03-09] MEDS ORDERED: BACITRACIN 28 GM OINTMENT TP PRN (06:00)
[2023-03-09] MEDS ORDERED: ONDANSETRON HCL 4 MG TABLET PO PRN (06:00)
[2023-03-09] MEDS ORDERED: LOPERAMIDE HCL 2 MG CAPSULE PO PRN (06:00)
[2023-03-09] MEDS ORDERED: MAG HYDROX/AL HYDROX/SIMETH ES 30 ML SUSPENSION UDCUP PO PRN (06:00)
[2023-03-09] MEDS ORDERED: DOCUSATE SODIUM 100 MG CAPSULE PO PRN (06:00)
[2023-03-09] MEDS ORDERED: ALBUTEROL SULFATE HFA 90 MCG/PUFF 8 GM INHALER IH PRN (06:00)
[2023-03-09] MEDS ORDERED: MAGNESIUM HYDROXIDE SUSPENSION 30 ML UDCUP PO PRN (06:00)
[2023-03-09 09:20] VITALS: BP 90/74; PULSE 76; RESP 17; TEMP 97.8; O2SAT 100
[2023-03-09 20:02] VITALS: BP 128/73; PULSE 77; RESP 17; TEMP 97.8
[2023-03-09] MEDS: QUEtiapine FUMARATE 200 MG TABLET PO SCH (20:27)
[2023-03-10 08:35] VITALS: BP 109/70; PULSE 74; RESP 17; TEMP 97.4; O2SAT 96
[2023-03-10] MEDS: QUEtiapine FUMARATE 200 MG TABLET PO SCH (20:21)
[2023-03-10 21:19] VITALS: BP 105/71; PULSE 65; RESP 19; TEMP 97.9; O2SAT 100
[2023-03-11 08:40] VITALS: BP 118/79; PULSE 90; RESP 17; TEMP 97.7; O2SAT 97
[2023-03-11] MEDS: QUEtiapine FUMARATE 200 MG TABLET PO SCH (20:21)
[2023-03-11 21:00] VITALS: BP 100/61; PULSE 77; RESP 16; TEMP 97.8; O2SAT 98
[2023-03-12] MEDS: QUEtiapine FUMARATE 200 MG TABLET PO SCH (20:11)
[2023-03-12 20:34] VITALS: BP 114/71; PULSE 100; RESP 18; TEMP 98.1; O2SAT 98
[2023-03-13 16:32] VITALS: BP 100/60; PULSE 77; RESP 19; TEMP 97; O2SAT 99
[2023-03-13] MEDS: QUEtiapine FUMARATE 200 MG TABLET PO SCH (20:18)
[2023-03-13 20:35] VITALS: BP 100/60; PULSE 77; RESP 19; TEMP 97; O2SAT 99
[2023-03-14 08:43] VITALS: RESP 19; TEMP 97
[2023-03-14 20:15] VITALS: BP 117/69; PULSE 85; RESP 18; TEMP 97.9; O2SAT 97
[2023-03-14] MEDS: QUEtiapine FUMARATE 200 MG TABLET PO SCH (20:41)
[2023-03-15 08:26] VITALS: BP 100/60; PULSE 70; RESP 17; TEMP 98; O2SAT 94
[2023-03-15] MEDS: QUEtiapine FUMARATE 200 MG TABLET PO SCH (21:01)
[2023-03-15 21:06] VITALS: BP 111/60; PULSE 77; RESP 17; TEMP 98; O2SAT 96
[2023-03-16 08:59] VITALS: BP 111/54; PULSE 65; RESP 19; TEMP 97.5; O2SAT 98
[2023-03-16] MEDS: QUEtiapine FUMARATE 200 MG TABLET PO SCH (21:01)
[2023-03-17 09:00] VITALS: BP 100/57; PULSE 84; RESP 20; TEMP 97; O2SAT 99
[2023-03-17 20:00] VITALS: BP 121/69; PULSE 80; RESP 18; TEMP 98.1; O2SAT 99
[2023-03-17] MEDS: QUEtiapine FUMARATE 200 MG TABLET PO SCH (20:09)
[2023-03-18 08:38] VITALS: BP 114/61; PULSE 68; RESP 17; TEMP 97.7; O2SAT 98
[2023-03-18] MEDS ORDERED: QUET200T30 PO (11:49)
== END 2023-03-18 12:30 | disposition home or self-care (01) | DRG 753 ==
LOC: EMS 17:31 → B2S 03-09 02:46
PROVIDERS: ADMIT Psychiatry & Neurology Psychiatry; ATTEND Psychiatry & Neurology Psychiatry
DX: F31.9 Bipolar disorder, unspecified (principal); R45.851 Suicidal ideations; F25.1 Schizoaffective disorder, depressive type; F15.10 Other stimulant abuse, uncomplicated; I10 Essential (primary) hypertension; K59.00 Constipation, unspecified; F17.200 Nicotine dependence, unspecified, uncomplicated; F41.9 Anxiety disorder, unspecified; F10.90 Alcohol use, unspecified, uncomplicated; Z20.822 Contact with and (suspected) exposure to COVID-19
CPT/HCPCS: 80053; 85025; 87081; 99285; G0480

== ENCOUNTER 2023-03-24 15:17 | Inpatient (IN) | payer MEDICAID ==
[~2023-03-24] VITALS: Ht 180.3 cm; Wt 95.3 kg
[~2023-03-24 15:17] MED LIST changes: +QUET200T30 PO; -RISP1TAB98 PO; -RISP2TAB86 PO
[2023-03-24] MEDS ORDERED: LORazepam 2 MG TABLET PO PRN (16:00)
[2023-03-24] MEDS ORDERED: HALOPERIDOL 5 MG TABLET PO PRN (16:00)
[2023-03-24] MEDS ORDERED: ZOLPIDEM TARTRATE 10 MG TABLET PO PRN (16:00)
[2023-03-24 18:05] VITALS: BP 115/74; PULSE 75; RESP 18; TEMP 97.9; O2SAT 95
[2023-03-24] MEDS ORDERED: INFLUENZA VIRUS VACCINE QVS 2023-24 (6MO+)/PF 60 MCG/0.5 ML SYRINGE IM. ONE (18:45)
[2023-03-24 20:33] VITALS: BP 120/78; PULSE 70; RESP 18; TEMP 98; O2SAT 96
[2023-03-25] MEDS ORDERED: CloNIDine HCL 0.1 MG TABLET PO PRN (06:45)
[2023-03-25] MEDS ORDERED: MAG HYDROX/AL HYDROX/SIMETH ES 30 ML SUSPENSION UDCUP PO PRN (06:45)
[2023-03-25] MEDS ORDERED: MAGNESIUM HYDROXIDE SUSPENSION 30 ML UDCUP PO PRN (06:45)
[2023-03-25] MEDS ORDERED: OMEPRAZOLE 20 MG CAPSULE PO PRN (06:45)
[2023-03-25] MEDS ORDERED: DOCUSATE SODIUM 100 MG CAPSULE PO PRN (06:45)
[2023-03-25] MEDS ORDERED: BACITRACIN 28 GM OINTMENT TP PRN (06:45)
[2023-03-25] MEDS ORDERED: IBUPROFEN 600 MG TABLET PO PRN (06:45)
[2023-03-25] MEDS ORDERED: LOPERAMIDE HCL 2 MG CAPSULE PO PRN (06:45)
[2023-03-25] MEDS ORDERED: ONDANSETRON HCL 4 MG TABLET PO PRN (06:45)
[2023-03-25] MEDS ORDERED: PETROLATUM,WHITE 28 GM JELLY TP PRN (06:45)
[2023-03-25] MEDS ORDERED: BENZOCAINE/MENTHOL LOZENGE PO PRN (06:45)
[2023-03-25] MEDS ORDERED: ALBUTEROL SULFATE HFA 90 MCG/PUFF 8 GM INHALER IH PRN (06:45)
[2023-03-25] MEDS ORDERED: ACETAMINOPHEN 325 MG TABLET PO PRN (06:45)
[2023-03-25 08:25] VITALS: BP 128/79; PULSE 76; RESP 18; TEMP 98.1; O2SAT 96
[2023-03-25 20:15] VITALS: BP 103/62; PULSE 74; TEMP 98
[2023-03-25] MEDS: QUEtiapine FUMARATE 200 MG TABLET PO SCH (20:16)
[2023-03-26 08:47] VITALS: BP 136/77; PULSE 66; RESP 17; TEMP 98; O2SAT 100
[2023-03-26] MEDS: QUEtiapine FUMARATE 200 MG TABLET PO SCH (20:24)
[2023-03-26 23:39] VITALS: BP 140/75; PULSE 92; RESP 17; TEMP 97.7; O2SAT 95
[2023-03-27 08:31] VITALS: PULSE 76; RESP 17; TEMP 97.8; O2SAT 100
[2023-03-27 20:31] VITALS: BP 103/62; PULSE 82; RESP 20; TEMP 98.1; O2SAT 99
[2023-03-27] MEDS: QUEtiapine FUMARATE 200 MG TABLET PO SCH (21:16)
[2023-03-28 08:50] VITALS: BP 112/62; PULSE 62; RESP 18; TEMP 97.7; O2SAT 97
[2023-03-28 10:01] LABS: GLUCOMETER DEV NAME(LOC) POC.BV; POC SARS-COV2 AG, FIA NEGATIVE (NEGATIVE)
[2023-03-30 08:10] LABS: APPEARANCE,URINE CLEAR (CLEAR); BILIRUBIN,URINE NEGATIVE (NEGATIVE); COLOR,URINE LIGHT YELLOW (YELLOW); GLUCOSE, URINE (UA) NEGATIVE (NEGATIVE); KETONES,URINE NEGATIVE (NEGATIVE); LEUKOCYTE ESTERASE ,URINE NEGATIVE (NEGATIVE); NITRATE,URINE NEGATIVE (NEGATIVE); OCCULT BLOOD,URINE NEGATIVE (NEGATIVE); PROTEIN,URINE NEGATIVE (NEGATIVE); SPECIFIC GRAVITIY, URINE 1.019 (1.003-1.030); UROBILINOGEN,URINE <=1.0 mg/dL (<=1.0)
[2023-03-30 08:19] LABS: ALCOHOL, URINE DRUG SCREEN NEGATIVE (NEGATIVE); AMPHET/METH SCREEN,URINE NEGATIVE (NEGATIVE); BARBITURATE SCREEN, URINE NEGATIVE (NEGATIVE); BENZODIAZEPINES SCREEN,URINE NEGATIVE (NEGATIVE); CANNABINOID SCREEN,URINE NEGATIVE (NEGATIVE); COCAINE SCREEN,URINE NEGATIVE (NEGATIVE); METHADONE SCREEN, URINE NEGATIVE (NEGATIVE); OPIATE SCREEN,URINE NEGATIVE (NEGATIVE); PHENCYCLIDINE SCREEN,URINE NEGATIVE (NEGATIVE)
== END 2023-03-28 16:45 | disposition home or self-care (01) | DRG 750 ==
LOC: B2S 16:26
PROVIDERS: ADMIT Psychiatry & Neurology Psychiatry; ATTEND Psychiatry & Neurology Psychiatry
DX: F25.9 Schizoaffective disorder, unspecified (principal); R45.851 Suicidal ideations; F29 Unspecified psychosis not due to a substance or known physiological condition; Z91.148 Patient's other noncompliance with medication regimen for other reason; F15.10 Other stimulant abuse, uncomplicated; Z20.822 Contact with and (suspected) exposure to COVID-19; F17.200 Nicotine dependence, unspecified, uncomplicated; F31.9 Bipolar disorder, unspecified; I10 Essential (primary) hypertension; K59.00 Constipation, unspecified; F10.90 Alcohol use, unspecified, uncomplicated; Z79.899 Other long term (current) drug therapy
CPT/HCPCS: 80307; 81003; 87081

== ENCOUNTER 2023-05-25 02:01 | Emergency (ER) | payer MEDICAID ==
[~2023-05-25] VITALS: Ht 180.3 cm; Wt 113.6 kg
[2023-05-25 02:08] VITALS: TEMP 98.6
[2023-05-25 02:14] VITALS: BP 140/95; PULSE 100; RESP 16
== END 2023-05-25 03:34 | disposition left against medical advice (07) ==
LOC: EMS 02:02
DX: R06.02 Shortness of breath (principal); F41.9 Anxiety disorder, unspecified; F31.9 Bipolar disorder, unspecified; F20.9 Schizophrenia, unspecified; F17.210 Nicotine dependence, cigarettes, uncomplicated; F12.90 Cannabis use, unspecified, uncomplicated; F15.90 Other stimulant use, unspecified, uncomplicated
CPT/HCPCS: 99283; Z7502

== ENCOUNTER 2023-06-30 20:18 | Emergency (ER) | payer MEDICAID, OTHER ==
[~2023-06-30] VITALS: Ht 175.3 cm; Wt 125.0 kg
[2023-06-30 20:24] VITALS: BP 119/72; PULSE 82; RESP 17; TEMP 98.2
== END 2023-06-30 21:30 | disposition left against medical advice (07) ==
LOC: EMS 20:22
DX: M79.604 Pain in right leg (principal); Z53.21 Procedure and treatment not carried out due to patient leaving prior to being seen by health care provider
CPT/HCPCS: 99281; Z7502